=== PATIENT | female | born 1940 | race Caucasian/White ===

== ENCOUNTER 2018-09-19 15:51 | Emergency (ER) | payer OTHER ==
[~2018-09-19] VITALS: Ht 162.6 cm; Wt 39.2 kg
[2018-09-19 15:54] VITALS: Ht 162.6 cm; Wt 39.2 kg
[2018-09-19] MEDS ORDERED: SOD CHLORIDE 0.9% 1,000 ML IV STA (16:18)
[2018-09-19] MEDS ORDERED: ONDANSETRON 4 MG INJ IV STA (16:18)
[2018-09-19] MEDS ORDERED: AMPICILLIN/SULB 1.5GM/NS (PMX) 50 ML IVPB STA (16:18)
[2018-09-19] MEDS ORDERED: morphine 4 MG/ML VIAL IV STA (16:18)
[2018-09-19] MEDS ORDERED: DIPHTH/TET/ACEL PERTUSS (ADULT) 0.5 ML VIAL IM* ONE (16:30)
[2018-09-19] MEDS ORDERED: CLOP75TA27 PO (16:44)
[2018-09-19] MEDS ORDERED: FLUT1BLS INHALATION (16:46)
[2018-09-19] MEDS ORDERED: OXYB5TAB22 PO (16:46)
[2018-09-19] MEDS ORDERED: VALS320T2 PO (16:46)
[2018-09-19] MEDS ORDERED: MUPIROCIN 2% 22 GM OINT TOP ONE (17:30)
[2018-09-19] MEDS ORDERED: AMOX1TAB10 PO (18:05)
[2018-09-19 19:00] VITALS: BP 165/95; PULSE 79; RESP 17
--- NOTE | 2018-09-20 00:38 | ERD ---
ER Documentation Chief Complaint Chief Complaint L wrist pain "dog bite" x yesterday deformity noted HPI 78-year-old woman presents with left dorsal hand and wrist pain, swelling after a medium-sized dog bite occurring 6 hours prior (not yesterday per triage). She does use clopidogrel daily and suspects the bruising and hematoma that occurred is due to clopidogrel use. She denies paresis or paresthesias, no chest pain or shortness of breath, no LOC. ROS All systems reviewed and are negative except as per history of present illness. Medications Home Meds Active Scripts Amoxicillin/Potassium Clav (Amox-Clav 875-125 mg Tablet) 875-125 mg Tab, 1 TAB PO BID for 7 Days, #14 TAB Prov:SERGEI SUAREZ MD 09/19/18 Reported Medications Fluticasone/Vilanterol (Breo Ellipta 200-25 Mcg INH) 1 Each Blst.w.dev, 1 PUFF INHALATION DAILY, #1 INHALER 09/19/18 Oxybutynin Chloride* (Ditropan* XL) 5 Mg Tabsr, 5 MG PO DAILY, TAB.SA 09/19/18 Valsartan* (Diovan*) 320 Mg Tablet, 320 MG PO DAILY, TAB 09/19/18 Clopidogrel Bisulfate (Clopidogrel) 75 Mg Tablet, 75 MG PO DAILY, #30 TAB 09/19/18 Allergies Allergies: Coded Allergies: Sulfa (Sulfonamide Antibiotics) (Verified Allergy, Severe, SWELLING AND ITCHING, 09/19/18) citalopram (Verified Allergy, Unknown, SWELLING AND ITCHING, 09/19/18) ibuprofen (Verified Allergy, Unknown, SWELLING AND ITCHING, 09/19/18) PMhx/Soc Hypertension, CAD History of Surgery: Yes Anesthesia Reaction: No Hx Neurological Disorder: No Hx Respiratory Disorders: No Hx Cardiac Disorders: Yes (HTN, VASCULAR INSUFFICIENTCY WITH EDEMA) Hx Psychiatric Problems: No Hx Miscellaneous Medical Probl: No Hx Alcohol Use: Yes (OOC) Hx Substance Use: No Hx Tobacco Use: Yes Smoking Status: Current every day smoker FmHx Family History: No diabetes Physical Exam Vitals Vital Signs Date Temp Pulse Resp B/P (MAP) Pulse Ox O2 O2 Flow FiO2 Time Delivery Rate 09/19/18 79 17 165/95 100 Room Air 19:00 (118) 09/19/18 98.4 80 18 116/93 99 Room Air 18:22 (101) 09/19/18 98.4 68 18 181/100 100 15:54 (127) Physical Exam Const: No acute distress Head: Atraumatic Eyes: Normal Conjunctiva ENT: Normal External Ears, Nose and Mouth. Neck: Full range of motion. No meningismus. Resp: Clear to auscultation bilaterally Cardio: Regular rate and rhythm, no murmurs Abd: Soft, non tender, non distended. Normal bowel sounds Skin: There is a large superficial hematoma over the dorsal aspect of the left hand and wrist but there is surrounding skin appears clean and dry, intact without induration or erythema. Over the hematoma there is a small superficial puncture wound as well without active bleeding Back: No midline or flank tenderness Ext: No cyanosis, or edema, calves bilaterally symmetrical Neur: Awake and alert x3, no focal deficits or facial asymmetry Psych: Normal Mood and Affect Result Diagram: 09/19/18 1624 09/19/18 1624 Results 24 hrs Laboratory Tests Test 09/19/18 16:24 White Blood Count 12.3 10^3/ul Red Blood Count 3.79 10^6/ul Hemoglobin 12.5 g/dl Hematocrit 37.9 % Mean Corpuscular Volume 100.0 fl Mean Corpuscular Hemoglobin 33.0 pg Mean Corpuscular Hemoglobin Concent 33.0 g/dl Red Cell Distribution Width 13.2 % Platelet Count 310 10^3/UL Mean Platelet Volume 10.2 fl Immature Granulocytes % 0.400 % Neutrophils % 79.7 % Lymphocytes % 12.8 % Monocytes % 6.6 % Eosinophils % 0.2 % Basophils % 0.3 % Nucleated Red Blood Cells % 0.0 /100WBC Immature Granulocytes # 0.050 10^3/ul Neutrophils # 9.8 10^3/ul Lymphocytes # 1.6 10^3/ul Monocytes # 0.8 10^3/ul Eosinophils # 0.0 10^3/ul Basophils # 0.0 10^3/ul Nucleated Red Blood Cells # 0.0 10^3/ul Prothrombin Time 11.9 Sec Prothrombin Time Ratio 0.9 INR International Normalized Ratio 0.87 Activated Partial Thromboplast Time 28.6 Sec Sodium Level 142 mmol/L Potassium Level 4.5 mmol/L Chloride Level 105 mmol/L Carbon Dioxide Level 27 mmol/L Anion Gap 10 Blood Urea Nitrogen 22 mg/dl Creatinine 0.89 mg/dl Est Glomerular Filtrat Rate mL/min mL/min Glucose Level 118 mg/dl Calcium Level 10.5 mg/dl Total Bilirubin 0.3 mg/dl Direct Bilirubin 0.00 mg/dl Indirect Bilirubin 0.3 mg/dl Aspartate Amino Transf (AST/SGOT) 30 IU/L Alanine Aminotransferase (ALT/SGPT) 17 IU/L Alkaline Phosphatase 75 IU/L Total Protein 7.9 g/dl Albumin 4.4 g/dl Globulin 3.50 g/dl Albumin/Globulin Ratio 1.25 Lipase 67 U/L Current Medications Medications Dose Sig/Makayla Start Time Status Last (Trade) Ordered Route PRN Stop Time Admin Dose Reason Admin Sodium 1,000 ml @ Q1H STAT 09/19/18 DC 09/19/18 Chloride 1,000 mls/hr IV 16:18 16:44 09/19/18 17:17 Morphine 4 mg ONCE STAT 09/19/18 DC 09/19/18 Sulfate IV 16:18 16:44 (morphine) 09/19/18 16:22 Ondansetron 4 mg ONCE STAT 09/19/18 DC 09/19/18 HCl (Zofran IV 16:18 16:42 Inj) 09/19/18 16:22 Ampicillin 50 ml @ ONCE STAT 09/19/18 DC 09/19/18 Sodium/ 100 mls/hr IVPB 16:18 16:51 Sulbactam 09/19/18 16:47 Sodium Diphtheria/ 0.5 ml ONCE ONCE 09/19/18 DC 09/19/18 Tetanus/Acell IM* 16:30 16:43 Pertussis 09/19/18 16:31 (Adacel) Mupirocin 1 applic ONCE ONCE 09/19/18 DC (Bactroban) TOP 17:30 09/19/18 17:31 Procedures/MDM IV line was established patient was placed on campus monitor rhythm strip revealed a sinus rhythm at about 80 bpm with upright P and T waves. Patient was afebrile I administered 1 L normal saline IV, Unasyn 1.5 g IV, morphine 4 mg IV, Zofran 4 mg IV, tetanus toxoid 0.5 mL IM x1. One AP view of the chest performed, read by me reveals no acute infiltrates, normal mediastinum, sharp costophrenic and cardiac borders, no air under the diaphragm. Otherwise unremarkable chest x-ray. X-ray left hand 3V interpreted by me: Scaphoid: Normal Bones: No fracture Joints: No dislocation Foreign body: None X-ray left forearm 2V Interpreted by me: Bones: No fracture Joints: No dislocation Foreign body: None CBC and electrolytes were normal, liver function tests normal. Mupirocin antibiotic ointment was applied over the hematoma and nonadherent gauze patch and gauze wrap was applied for comfort measures. I told the patient to return in 24-48 hours for wound reevaluation I do not suspect she has cell ulitis, gangrene, lymphangitis, or deep space infection, although all of these are potential complications of this dog bite and may occur despite today's management and outpatient antibiotics, thus the importance of returning in 24-48 hours. Patient understood instructions and agreed to plan. Patient feels much better at this time, and vital signs are normal, symptoms have improved. I did give strict instructions to return to the ED if symptoms continue or worsen, patient will otherwise follow-up with primary care physician. Patient understood instructions and agreed to plan. Disclaimer: Inadvertent spelling and grammatical errors are likely due to EHR/dictation software use and do not reflect on the overall quality of patient care. Also, please note that the electronic time recorded on this note does not necessarily reflect the actual time of the patient encounter. Departure Diagnosis: Primary Impression: Dog bite Encounter type: initial encounter Qualified Codes: W54.0XXA - Bitten by dog, initial encounter Additional Impression: Hematoma Ruled Out: Wrist injury Condition: Good Patient Instructions: Dog Bite SERGEI SUAREZ MD Sep 20, 2018 00:38
== END 2018-09-19 19:00 | disposition home or self-care (01) ==
LOC: E/R 15:51
DX: S61.532A Puncture wound without foreign body of left wrist, initial encounter (principal); F17.210 Nicotine dependence, cigarettes, uncomplicated; I10 Essential (primary) hypertension; I25.10 Atherosclerotic heart disease of native coronary artery without angina pectoris; R07.9 Chest pain, unspecified; W54.0XXA Bitten by dog, initial encounter; Y92.9 Unspecified place or not applicable; Z23 Encounter for immunization
CPT/HCPCS: 36415; 71045; 73090; 73130; 80053; 83690; 85025; 85610; 85730; 90471; 90715; 96365; 96375; 99284; J0295; J2270; J2405; J7030

== ENCOUNTER 2018-09-25 14:21 | Emergency (ER) | payer OTHER ==
[~2018-09-25] VITALS: Ht 152.4 cm; Wt 50.0 kg
[~2018-09-25 14:21] MED LIST: AMOX1TAB10 PO; CLOP75TA27 PO; FLUT1BLS INHALATION; OXYB5TAB22 PO; VALS320T2 PO
[2018-09-25 14:28] VITALS: BP 173/83; PULSE 95; RESP 18; Ht 152.4 cm; Wt 50.0 kg
[2018-09-25] MEDS ORDERED: ONDANSETRON 4 MG INJ IV STA (16:12)
[2018-09-25] MEDS ORDERED: SODIUM CHLORIDE 0.9% 1L BAG IV* STA (16:12)
--- NOTE | 2018-09-25 16:24 | ERD ---
ER Documentation Chief Complaint Chief Complaint NAUSEA VOMITING TODAY AFTER TAKING ABX HPI This is a 78-year-old female with a past medical history of hypertension, COPD, peripheral vascular disease on Plavix who is presenting with worsening pain, swelling and discoloration to the left hand and arm after a dog bite that occurred 1 week ago. The patient was reportedly bitten by a dog with a wound to the dorsum of the left hand, occurring 1 week ago. The patient came into the emergency department 1 day later. The patient was given a tetanus shot. The dog was domesticated. There is reportedly no concern for rabies. The patient was ultimately discharged in stable condition on Augmentin. The patient initially had nausea and nonbilious nonbloody vomiting on the first day after taking the medication. Since then, the patient has been compliant on the medicine. She reports that she felt the symptoms were improving. The patient's hand was initially quite swollen, and the previous medical record felt that it was likely associated with a hematoma from bleeding while on Plavix. The patient thought that the swelling was going down. However, last night, the patient thinks she may have hit her hand on something because she woke up to bleeding from the dog bite wound. Since that bleeding started, her fingers, hand and forearm have become black and blue. She called the after-hours number for her primary care physician who instructed her to come to the emergency department for further assessment. The patient reports normal sensation and strength. She has not noticed any purulent material from the wound. The patient denies feeling sick recently. The patient denies fever or chills. The patient has had no headache or vision changes. The patient does not endorse neck or back pain. The patient denies lightheadedness or dizziness. The patient has had no chest pain or trouble breathing. The patient denies nausea or vomiting. The patient denies abdominal pain. The patient denies changes to bowel movements or urination. The patient has had no focal deficits. The patient has had no weakness or numbness or tingling to the face or extremities. ROS All systems reviewed and are negative except as per history of present illness. Medications Home Meds Active Scripts Amoxicillin/Potassium Clav (Amox-Clav 875-125 mg Tablet) 875-125 mg Tab, 1 TAB PO BID for 7 Days, #14 TAB Prov:SERGEI SUAREZ MD 09/19/18 Reported Medications Fluticasone/Vilanterol (Breo Ellipta 200-25 Mcg INH) 1 Each Blst.w.dev, 1 PUFF INHALATION DAILY, #1 INHALER 09/19/18 Oxybutynin Chloride* (Ditropan* XL) 5 Mg Tabsr, 5 MG PO DAILY, TAB.SA 09/19/18 Valsartan* (Diovan*) 320 Mg Tablet, 320 MG PO DAILY, TAB 09/19/18 Clopidogrel Bisulfate (Clopidogrel) 75 Mg Tablet, 75 MG PO DAILY, #30 TAB 09/19/18 Allergies Allergies: Coded Allergies: Sulfa (Sulfonamide Antibiotics) (Verified Allergy, Severe, SWELLING AND ITCHING, 09/19/18) citalopram (Verified Allergy, Unknown, SWELLING AND ITCHING, 09/19/18) ibuprofen (Verified Allergy, Unknown, SWELLING AND ITCHING, 09/19/18) PMhx/Soc History of Surgery: Yes Anesthesia Reaction: No Hx Neurological Disorder: No Hx Respiratory Disorders: No Hx Cardiac Disorders: Yes (HTN, peripheral vascular disease) Hx Psychiatric Problems: No Hx Miscellaneous Medical Probl: No Hx Alcohol Use: Yes (Occasional) Hx Substance Use: No Hx Tobacco Use: Yes Smoking Status: Heavy tobacco smoker FmHx Family History: No diabetes Physical Exam Vitals Vital Signs Date Temp Pulse Resp B/P (MAP) Pulse Ox O2 O2 Flow FiO2 Time Delivery Rate 09/25/18 97.8 95 18 173/83 95 14:28 (113) Physical Exam Const: No apparent distress, well-developed. Cachectic. Head: Normocephalic, Atraumatic Eyes: Normal Conjunctiva. Extraocular movements intact. Pupils equal, round a nd reactive to light ENT: Normal External Ears, Nose and Mouth. Neck: Full range of motion. No meningismus. Resp: Clear to auscultation bilaterally, No wheezes, rales or rhonchi Cardio: Regular rate and rhythm. No murmurs, rubs or gallops Abd: Soft, non tender, non distended. Normal bowel sounds Skin: No petechiae or rashes Back: No midline tenderness. No CVA tenderness Ext: No cyanosis. Mild edema and bruising to the left hand and forearm. Radial pulse is intact. Capillary refill less than 2 seconds. Puncture wound to the dorsum of the left hand with bloody nonpurulent secretions. No crepitus. Neur: Awake and alert, oriented 4. Cranial nerves intact. No facial droop. Normal strength, sensation and coordination. Psych: Normal Mood and Affect Result Diagram: 09/25/18 1639 09/25/18 1639 Results 24 hrs Laboratory Tests Test 09/25/18 16:39 09/25/18 17:08 White Blood Count 9.3 10^3/ul Red Blood Count 3.62 10^6/ul Hemoglobin 12.0 g/dl Hematocrit 36.5 % Mean Corpuscular Volume 100.8 fl Mean Corpuscular Hemoglobin 33.1 pg Mean Corpuscular Hemoglobin Concent 32.9 g/dl Red Cell Distribution Width 13.1 % Platelet Count 337 10^3/UL Mean Platelet Volume 9.9 fl Immature Granulocytes % 0.400 % Neutrophils % 81.1 % Lymphocytes % 10.9 % Monocytes % 7.2 % Eosinophils % 0.2 % Basophils % 0.2 % Nucleated Red Blood Cells % 0.0 /100WBC Immature Granulocytes # 0.040 10^3/ul Neutrophils # 7.5 10^3/ul Lymphocytes # 1.0 10^3/ul Monocytes # 0.7 10^3/ul Eosinophils # 0.0 10^3/ul Basophils # 0.0 10^3/ul Nucleated Red Blood Cells # 0.0 10^3/ul Erythrocyte Sedimentation Rate 51 mm/Hr Prothrombin Time 11.7 Sec Prothrombin Time Ratio 0.9 INR International Normalized Ratio 0.85 Activated Partial Thromboplast Time 29.7 Sec Sodium Level 143 mmol/L Potassium Level 3.7 mmol/L Chloride Level 104 mmol/L Carbon Dioxide Level 29 mmol/L Anion Gap 10 Blood Urea Nitrogen 16 mg/dl Creatinine 0.75 mg/dl Est Glomerular Filtrat Rate mL/min mL/min Glucose Level 100 mg/dl Calcium Level 9.9 mg/dl Total Bilirubin 0.3 mg/dl Direct Bilirubin 0.00 mg/dl Indirect Bilirubin 0.3 mg/dl Aspartate Amino Transf (AST/SGOT) 23 IU/L Alanine Aminotransferase (ALT/SGPT) 10 IU/L Alkaline Phosphatase 72 IU/L C-Reactive Protein 0.6 mg/dl Total Protein 7.6 g/dl Albumin 4.3 g/dl Globulin 3.30 g/dl Albumin/Globulin Ratio 1.30 Lactic Acid Level 1.1 mmol/L Current Medications Medications Dose Sig/Makayla Start Time Status Last (Trade) Ordered Route PRN Stop Time Admin Dose Reason Admin Sodium 1,500 ml BOLUS OVER 2 09/25/18 DC 09/25/18 Chloride HOURS STAT 16:12 09/25/18 16:50 (NS) IV* 16:16 Ondansetron 4 mg ONCE STAT 09/25/18 DC 09/25/18 HCl (Zofran IV 16:12 09/25/18 16:50 Inj) 16:16 Vancomycin 250 ml @ ONCE ONCE 09/25/18 DC 09/25/18 HCl 125 mls/hr IVPB 16:30 09/25/18 17:32 18:29 Cefepime HCl 50 ml @ ONCE ONCE 09/25/18 DC 09/25/18 100 mls/hr IVPB 16:30 09/25/18 16:50 16:59 Bacitracin 1 applic ONCE ONCE 09/25/18 DC (Bacitracin TOP 18:30 09/25/18 Oint (Ud)) 18:31 Procedures/MDM MDM The patient's presentation warrants further investigation. Previous medical records, if available, were reviewed. LABS The patient's laboratory testing was obtained and reviewed. No emergent treatment was required unless described below. CBC: No E/o of systemic infection or severe anemia or thrombocytopenia Chemistry: No E/o severe acidosis or alkalosis or renal failure or liver disease or diabetic ketoacidosis PT/INR: No E/o significant coagulopathy. Lactate: No E/o severe sepsis ESR/CRP: Mildly elevated ESR, but unlikely high enough to be from osteomyelitis or other concerning infection. Additionally, CRP is negative. Blood cultures: Sent EKG EKG read by me: Rate/Rhythm: Regular rate and rhythm at a rate of 65 bpm Intervals: Normal [place]: Normal Impression: No evidence of acute ischemia or arrhythmia IMAGING Imaging and Radiology interpretation reviewed. CXR FINDINGS: The lungs are clear. There is no pleural effusion or pneumothorax. The cardiac and mediastinal contours are within normal limits. The aorta is atherosclerotic. IMPRESSION: No acute pulmonary abnormality. Electronically viewed and signed by Uriah Loomis Physician on 09/25/2018 16:40 X-ray left hand FINDINGS: There is no acute fracture or dislocation. Osseous structures are intact. The osseous mineralization is decreased. There are mild to moderate degenerative changes of the wrist along with mild degenerative changes of the hand. There is no focal osseous demineralization. There is decreased soft tissue swelling of the hand. IMPRESSION: Decreased soft tissue swelling of the hand without an underlying osseous abnormality. Electronically viewed and signed by Physician Juan on 09/25/2018 16:42 Doppler left upper extremity FINDINGS: There is normal compressibility and flow within the left internal jugular vein, subclavian vein, axillary vein, brachial, basilic, cephalic, radial and ulnar veins. IMPRESSION: No sonographic evidence for venous thrombosis. Electronically viewed and signed by .Ar Abdalla MD, on 09/25/2018 17:11 TREATMENT/DISPOSITION The patient presents for swelling and bruising to the left hand and upper extremity after waking up to bleeding from the wound. I do suspect a mild traumatic injury that led to a transient vascular injury at the site. The patient's symptoms appear to be related to bleeding that has since been controlled. I do not see evidence of a worsening infection. I do not see evidence of an abscess. I do not see evidence of tenosynovitis. I have low suspicion for necrotizing fasciitis. I have low suspicion for gangrene. The patient was treated with an IV fluid bolus, vancomycin and cefepime as the hand is a very sensitive structure and I feel that prophylaxis is important. That said, the patient's workup does not reveal a systemic infection or sepsis. Based on this reassuring workup, I do not feel that the patient requires continuation of antibiotics from such a broad-spectrum. The patient is to complete her Augmentin dosing. She was initially prescribed 7 days, but she was not able to complete her first day due to nausea and vomiting. In addition to a prescription of Zofran for nausea, I will also extend the patient's Augmentin duration. The patient was also treated with bacitracin around the site. A dressing was applied over the wound. Upon reevaluation of the patient, symptoms have improved. No emergent diagnoses were identified. At this time, I feel that the patient stable for discharge. The patient was instructed to follow-up with a primary care physician in 1-3 days. The patient will be given strict precautions with which to return to the emergency department. Prescriptions: Zofran, Augmentin The patient's blood pressure was elevated at greater than 120/80 while in the emergency department. The patient was otherwise stable with no evidence of hypertensive urgency or emergency. The patient does not require admission for blood pressure control. I have discussed with the patient the risks of hypertension. I have instructed the patient to return to the ER for any new or worsening symptoms including chest pain, shortness of breath, headache, blurred vision, confusion, nausea, vomiting or LOC. I have advised the patient to follow up with the primary care physician for outpatient monitoring and treatment for hypertension in 1-3 days. Disclaimer: Inadvertent spelling and grammatical errors are likely due to EHR/dictation software use and do not reflect on the overall quality of patient care. Note that the electronic time recorded on this note does not necessarily reflect the actual time of the patient encounter. Departure Diagnosis: Primary Impression: Traumatic hematoma of left hand Encounter type: initial encounter Qualified Codes: S60.222A - Contusion of left hand, initial encounter Additional Impressions: Puncture wound of hand Encounter type: subsequent encounter Foreign body presence: without foreign body Laterality: left Qualified Codes: S61.432D - Puncture wound without foreign body of left hand, subsequent encounter Dog bite Encounter type: subsequent encounter Qualified Codes: W54.0XXD - Bitten by dog, subsequent encounter Condition: Stable JAY RAMIREZ MD Sep 25, 2018 16:24
[2018-09-25] MEDS ORDERED: CEFEPIME 1GM/50 ML (PMX) 50 ML IVPB ONE (16:30)
[2018-09-25] MEDS ORDERED: VANCOMYCIN 1 GM (PMX) 250 ML IVPB ONE (16:30)
[2018-09-25] MEDS ORDERED: BACITRACIN 0.9 GM OINT TOP ONE (18:30)
[2018-09-25] MEDS ORDERED: AMOX1TAB10 PO (19:01)
[2018-09-25] MEDS ORDERED: ONDA4TAB8 PO (19:02)
== END 2018-09-25 19:41 | disposition home or self-care (01) ==
LOC: E/R 14:21
DX: S61.432D Puncture wound without foreign body of left hand, subsequent encounter (principal); I10 Essential (primary) hypertension; J44.9 Chronic obstructive pulmonary disease, unspecified; F17.210 Nicotine dependence, cigarettes, uncomplicated; W54.0XXD Bitten by dog, subsequent encounter; Z79.01 Long term (current) use of anticoagulants
CPT/HCPCS: 36415; 71045; 73130; 80053; 83605; 85025; 85610; 85651; 85730; 86140; 87040; 93005; 93971; 96374; 96375; 99285; J0692; J2405; J3370; J7030

== ENCOUNTER 2019-02-02 11:52 | Inpatient (IN) | payer OTHER ==
[~2019-02-02] VITALS: Ht 162.6 cm; Wt 55.0 kg
[~2019-02-02 11:52] MED LIST changes: +ONDA4TAB8 PO
[2019-02-02] MEDS ORDERED: SOD CHLORIDE 0.9% 1,000 ML IV STA (12:06)
[2019-02-02] MEDS ORDERED: DILTIAZEM 25 MG INJ IV STA (12:47)
[2019-02-02] MEDS ORDERED: MAGNESIUM SULFATE 2 GM/50 ML 50 ML IVPB STA (12:47)
[2019-02-02] MEDS ORDERED: DILT300T PO (13:24)
[2019-02-02] MEDS ORDERED: BENA40TA56 PO (13:25)
[2019-02-02] MEDS: DILTIAZEM-D5W 125MG/125ML DRIP 125 ML IV STA ×2 (13:42→15:22)
--- NOTE | 2019-02-02 13:48 | ERD ---
ER Documentation Chief Complaint Chief Complaint BIB RA FOR EVAL OF GENERALIZED WEAKNESS HPI 79-year-old female who lives alone. The patient states that she could not get off of her toilet this morning. She denies any falls or injury. She felt generally weak and could not stand up. She denies any fevers chills chest pain or shortness of breath. Patient states that she is able to care for her activities of daily living and does not wish to go to a rehab facility. It sounds like a neighbor got her off of her toilet and she was sitting outside when paramedics arrived. Patient is found to be in A. fib with RVR. She does r eport a history of atrial fibrillation. ROS All systems reviewed and are negative except as per history of present illness. Medications Home Meds Reported Medications Benazepril Hcl* (Benazepril Hcl*) 40 Mg Tablet, 40 MG PO DAILY, #30 TAB 02/02/19 Diltiazem Hcl* (Cardizem LA*) 300 Mg Tab.sr.24h, 300 MG PO DAILY, #30 TAB.SA 02/02/19 Discontinued Reported Medications Fluticasone/Vilanterol (Breo Ellipta 200-25 Mcg INH) 1 Each Blst.w.dev, 1 PUFF INHALATION DAILY, #1 INHALER 09/19/18 Oxybutynin Chloride* (Ditropan* XL) 5 Mg Tabsr, 5 MG PO DAILY, TAB.SA 09/19/18 Valsartan* (Diovan*) 320 Mg Tablet, 320 MG PO DAILY, TAB 09/19/18 Clopidogrel Bisulfate (Clopidogrel) 75 Mg Tablet, 75 MG PO DAILY, #30 TAB 09/19/18 Discontinued Scripts Ondansetron Hcl* (Zofran*) 4 Mg Tablet, 4 MG PO Q6H for NAUSEA AND/OR VOMITING, #20 TAB Prov:JAY RAMIREZ MD 09/25/18 Amoxicillin/Potassium Clav (Amox-Clav 875-125 mg Tablet) 875-125 mg Tab, 1 TAB PO BID for 3 Days, #6 TAB Prov:JAY RAMIREZ MD 09/25/18 Amoxicillin/Potassium Clav (Amox-Clav 875-125 mg Tablet) 875-125 mg Tab, 1 TAB PO BID for 7 Days, #14 TAB Prov:SERGEI SUAREZ MD 09/19/18 Allergies Allergies: Coded Allergies: Sulfa (Sulfonamide Antibiotics) (Verified Allergy, Severe, SWELLING AND ITCHING, 02/02/19) citalopram (Verified Allergy, Unknown, SWELLING AND ITCHING, 02/02/19) ibuprofen (Verified Allergy, Unknown, SWELLING AND ITCHING, 02/02/19) PMhx/Soc History of Surgery: Yes Anesthesia Reaction: No Hx Neurological Disorder: No Hx Respiratory Disorders: No Hx Cardiac Disorders: Yes (HTN, peripheral vascular disease) Hx Psychiatric Problems: No Hx Miscellaneous Medical Probl: No Hx Alcohol Use: Yes (Occasional) Hx Substance Use: No Hx Tobacco Use: Yes FmHx Family History: No diabetes Physical Exam Vitals Vital Signs Date Temp Pulse Resp B/P (MAP) Pulse Ox O2 O2 Flow FiO2 Time Delivery Rate 02/02/19 88 17 102/88 95 Nasal 3.0 14:44 (93) Cannula 02/02/19 98.1 134 22 112/92 92 Room Air 12:30 (99) 02/02/19 98.0 91 16 121/68 99 11:57 (85) Physical Exam General: Cachectic female, clinical dehydration Head: Normocephalic, atraumatic. Eyes: Pupils equally reactive, EOM intact ENT: Dry mucous membranes Neck: Supple, no lymphadenopathy Respiratory: Lungs clear bilaterally, no distress Cardiovascular: Tachycardia, irregularly irregular, no murmurs, rubs, or gallops Abdominal: Soft, non-tender, non-distended, no peritoneal signs : Deferred MSK: No edema, no unilateral swelling, 5/5 strength Neurologic: Alert and oriented, moving all extremities, normal speech, no focal weakness, no cerebellar signs Skin: No rash Psych: Normal mood Result Diagram: 02/02/19 1307 02/02/19 1307 Results 24 hrs Laboratory Tests Test 02/02/19 13:07 02/02/19 13:21 White Blood Count 17.8 10^3/ul Red Blood Count 4.37 10^6/ul Hemoglobin 13.8 g/dl Hematocrit 43.5 % Mean Corpuscular Volume 99.5 fl Mean Corpuscular Hemoglobin 31.6 pg Mean Corpuscular Hemoglobin Concent 31.7 g/dl Red Cell Distribution Width 14.6 % Platelet Count 155 10^3/UL Mean Platelet Volume 12.9 fl Immature Granulocytes % 0.600 % Neutrophils % 89.8 % Lymphocytes % 3.4 % Monocytes % 6.0 % Eosinophils % 0.0 % Basophils % 0.2 % Nucleated Red Blood Cells % 0.2 /100WBC Immature Granulocytes # 0.100 10^3/ul Neutrophils # 16.0 10^3/ul Lymphocytes # 0.6 10^3/ul Monocytes # 1.1 10^3/ul Eosinophils # 0.0 10^3/ul Basophils # 0.0 10^3/ul Nucleated Red Blood Cells # 0.0 10^3/ul Sodium Level 141 mmol/L Potassium Level 4.3 mmol/L Chloride Level 111 mmol/L Carbon Dioxide Level 23 mmol/L Anion Gap 7 Blood Urea Nitrogen 45 mg/dl Creatinine 1.06 mg/dl Est Glomerular Filtrat Rate mL/min mL/min Glucose Level 206 mg/dl Calcium Level 8.9 mg/dl Total Bilirubin 0.9 mg/dl Direct Bilirubin 0.00 mg/dl Indirect Bilirubin 0.9 mg/dl Aspartate Amino Transf (AST/SGOT) 38 IU/L Alanine Aminotransferase (ALT/SGPT) 29 IU/L Alkaline Phosphatase 84 IU/L Troponin I 0.739 ng/ml Total Protein 6.6 g/dl Albumin 3.2 g/dl Globulin 3.40 g/dl Albumin/Globulin Ratio 0.94 Lipase 19 U/L Urine Color SOILA Urine Clarity SLIGHTLY CLOUDY Urine pH 5.0 Urine Specific [place] 1.026 Urine Ketones NEGATIVE mg/dL Urine Nitrite NEGATIVE mg/dL Urine Bilirubin NEGATIVE mg/dL Urine Urobilinogen 2+ mg/dL Urine Leukocyte Esterase NEGATIVE Jose/ul Urine Microscopic RBC 2 /HPF Urine Microscopic WBC 1 /HPF Urine Squamous Epithelial Cells FEW /HPF Urine Bacteria FEW /HPF Urine Mucus FEW /HPF Urine Hemoglobin NEGATIVE mg/dL Urine Glucose NEGATIVE mg/dL Urine Total Protein 2+ mg/dl Current Medications Medications Dose Sig/Makayla Start Time Status Last (Trade) Ordered Route PRN Stop Time Admin Dose Reason Admin Sodium 1,000 ml @ Q1H STAT 02/02/19 DC 02/02/19 Chloride 1,000 mls/hr IV 12:06 13:01 02/02/19 13:05 Diltiazem 20 mg ONCE STAT 02/02/19 DC 02/02/19 HCl IV 12:47 13:00 (Cardizem Iv) 02/02/19 12:48 Diltiazem 125 ml @ 5 ONCE STAT 02/02/19 02/02/19 HCl mls/hr IV 12:47 13:42 02/03/19 13:46 Magnesium 50 ml @ ONCE STAT 02/02/19 DC 02/02/19 Sulfate 600 mls/hr IVPB 12:47 13:00 02/02/19 12:51 Ondansetron 4 mg ER BRIDGE 02/02/19 HCl (Zofran PRN IV 14:00 Inj) NAUSEA/VOMITI 02/03/19 13:59 NG 650 mg ER BRIDGE 02/02/19 Acetaminophen PRN PO 14:00 (Tylenol .MILD PAIN 02/03/19 13:59 Tab) 1-3 OR TEMP Procedures/MDM EKG, MONITORS, & DIAGNOSTIC IMAGING: EKG: I reviewed and interpreted a 12-lead EKG. Rhythm: A. fib with RVR ST Changes: No contiguous ST segment elevations T waves: No contiguous T wave inversions Impression: [No evidence of acute cardiac ischemia] Chest x-ray: I reviewed and interpreted a 1 view of the chest Mediastinum: No enlargement Cardiac silhouette: No cardiomegaly Airspace: Clear lung hunt bilaterally without evidence of pneumothorax Bones: No evidence of fracture LAB INTERPRETATION: I reviewed the laboratory testing and it shows leukocytosis, trop elevation. MEDICAL DECISION MAKING: Patient presents with generalized weakness of unclear etiology. The patient appears to be clinically dehydrated. She would benefit from fluid resuscitati on. She is also found to be in A. fib with RVR and warrants rate control. This appears to be a chronic issue for the patient, unclear if she is taking anticoagulants. Patient did not fall or hit her head, no indication for CT imaging of the brain. The patient has a nonfocal neurologic examination. ER COURSE: * IV fluids, magnesium and Cardizem given. Rate control. No drip initiated at this time. It is placed to the bedside. * Patient has troponin elevation likely demand ischemia. The patient is rate controlled. Aspirin provided. CONSULTATION: Dr. Upton, cardiology at bedside DISPOSITION PLAN: Telemetry admission Accepting care team and consultations: I discussed the current laboratory data, diagnostic imaging and emergency care provided. Admitting team: Dr. Piper Admitting team indication: Insurance directed Critical Care Note: Total time: 35min Indication/Organ System Threat: A. fib with RVR, non-ST elevation myocardial infarction I spent the above amount of critical care time with the patient, not including billable procedures. This included chart review, consultations, repeat bedside evaluations, and titration of appropriate medications to prevent cardiopulmonary or respiratory collapse. Departure Diagnosis: Primary Impression: Acute weakness Additional Impressions: Dehydration, moderate Non-ST elevation myocardial infarction (NSTEMI) Atrial fibrillation with RVR Condition: Stable VIVIEN SANCHEZ MD Feb 02, 2019 13:48
[2019-02-02] MEDS ORDERED: ACETAMINOPHEN 325 MG TAB PO PRN (14:00)
[2019-02-02] MEDS ORDERED: ONDANSETRON 4 MG INJ IV PRN (14:00)
[2019-02-02] MEDS ORDERED: METOPROLOL 50 MG TAB PO ONE (15:30)
[2019-02-02] MEDS ORDERED: ASPIRIN 81 MG TAB PO ONE (15:30)
--- NOTE | 2019-02-02 16:08 | CONS ---
Assessment/Plan Assessment/Plan Hospital Course (Demo Recall) Atrial fibrillation with rapid ventricular rates Elevated troponin Lower extremity edema Hypertension Patient presents with fatigue, palpitations and weakness Patient with atrial fibrillation with rapid ventricular rates, unclear if this is new or patient with history of Incidentally troponins are elevated, ECG with no significant ischemic abnormalities and patient without chest pain or shortness of breath Patient currently on Cardizem drip, would start p.o. beta-swati with goal of titrating off IV Cardizem We will start Lovenox in the interim with close monitoring of hemoglobin Aspirin and statin therapy Gentle IV hydration Check echocardiogram Consultation Date/Type/Reason Admit Date/Time Type of Consult Cardiology Reason for Consultation Elevated troponin Date/Time of Note DATE: 02/02/19 TIME: 16:02 Hx of Present Illness This is a 79-year-old female with past mental history of probable atrial fibrillation, hypertension who presents with weakness and palpitation of the past few days. Patient inconsistent with her history, but when asked as well discussion with the ER physician, patient has been feeling weak and tired over the past few days. Is been having frequent palpitations. She denies any chest pain or shortness of breath but does complain of lower examinee swelling. Appears patient can get off the toilet and had a crawl in the floor to a neighbor to help her because she was so weak and tired. She was brought to emergency room and found to be in atrial fibrillation with rapid ventricular rates. Routine blood test demonstrated elevated troponin for this reason cardiology condition was requested. Patient is not sure if she has a history of atrial fibrillation, she thinks she was on Plavix in the past for her heart stop because of bleeding. Denies any chest pain or shortness of breath currently, denies any palpitations. She is asking for food and coffee. She does still actively smoke 12 point review of systems was performed with all pertinent positives and negatives mentioned above and all else is negative Past Medical History Probable atrial fibrillation Medical History: hypertension Home Meds Reported Medications Benazepril Hcl* (Benazepril Hcl*) 40 Mg Tablet, 40 MG PO DAILY, #30 TAB 02/02/19 Diltiazem Hcl* (Cardizem LA*) 300 Mg Tab.sr.24h, 300 MG PO DAILY, #30 TAB.SA 02/02/19 Discontinued Reported Medications Fluticasone/Vilanterol (Breo Ellipta 200-25 Mcg INH) 1 Each Blst.w.dev, 1 PUFF INHALATION DAILY, #1 INHALER 09/19/18 Oxybutynin Chloride* (Ditropan* XL) 5 Mg Tabsr, 5 MG PO DAILY, TAB.SA 09/19/18 Valsartan* (Diovan*) 320 Mg Tablet, 320 MG PO DAILY, TAB 09/19/18 Clopidogrel Bisulfate (Clopidogrel) 75 Mg Tablet, 75 MG PO DAILY, #30 TAB 09/19/18 Discontinued Scripts Ondansetron Hcl* (Zofran*) 4 Mg Tablet, 4 MG PO Q6H for NAUSEA AND/OR VOMITING, #20 TAB Prov:JAY RAMIREZ MD 09/25/18 Amoxicillin/Potassium Clav (Amox-Clav 875-125 mg Tablet) 875-125 mg Tab, 1 TAB PO BID for 3 Days, #6 TAB Prov:JAY RAMIREZ MD 09/25/18 Amoxicillin/Potassium Clav (Amox-Clav 875-125 mg Tablet) 875-125 mg Tab, 1 TAB PO BID for 7 Days, #14 TAB Prov:SERGEI SUAREZ MD 09/19/18 Medications Current Medications Diltiazem HCl 125 ml @ 5 mls/hr ONCE STAT IV Last administered on 02/02/19at 15:22; Admin Dose 5 MLS/HR; Start 02/02/19 at 12:47; Stop 02/03/19 at 13:46 Ondansetron HCl (Zofran Inj) 4 mg ER BRIDGE PRN IV NAUSEA/VOMITING; Start 02/02/19 at 14:00; Stop 02/03/19 at 13:59 Acetaminophen (Tylenol Tab) 650 mg ER BRIDGE PRN PO .MILD PAIN 1-3 OR TEMP; Start 02/02/19 at 14:00; Stop 02/03/19 at 13:59 Sodium Chloride 1,000 ml @ 80 mls/hr [id number] IV ; Start 02/02/19 at 16:00 Allergies: Coded Allergies: Sulfa (Sulfonamide Antibiotics) (Verified Allergy, Severe, SWELLING AND ITCHING, 02/02/19) citalopram (Verified Allergy, Unknown, SWELLING AND ITCHING, 02/02/19) ibuprofen (Verified Allergy, Unknown, SWELLING AND ITCHING, 02/02/19) Social History Smoking Status: Current every day smoker Exam/Review of Systems Vital Signs Vitals Vital Signs Date Temp Pulse Resp B/P (MAP) Pulse Ox O2 O2 Flow FiO2 Time Delivery Rate 02/02/19 88 17 102/88 95 Nasal 3.0 14:44 (93) Cannula 02/02/19 98.1 12:30 Exam Constitutional: alert, oriented (Becomes angered easily), frail Head: normocephalic Respiratory: other (Coarse breath sounds bilaterally, no wheezing) Cardiovascular: irregular rhythm (S1-S2 heard) Gastrointestinal: soft, non-tender, bowel sounds Extremities: edema Labs Result Diagram: 02/02/19 1307 02/02/19 1307 Results 24hrs Laboratory Tests Test 02/02/19 13:07 02/02/19 13:21 White Blood Count 17.8 #H Red Blood Count 4.37 # Hemoglobin 13.8 Hematocrit 43.5 Mean Corpuscular Volume 99.5 Mean Corpuscular Hemoglobin 31.6 Mean Corpuscular Hemoglobin Concent 31.7 L Red Cell Distribution Width 14.6 H Platelet Count 155 # Mean Platelet Volume 12.9 #H Immature Granulocytes % 0.600 H Neutrophils % 89.8 H Lymphocytes % 3.4 L Monocytes % 6.0 Eosinophils % 0.0 Basophils % 0.2 Nucleated Red Blood Cells % 0.2 H Immature Granulocytes # 0.100 H Neutrophils # 16.0 H Lymphocytes # 0.6 L Monocytes # 1.1 H Eosinophils # 0.0 Basophils # 0.0 Nucleated Red Blood Cells # 0.0 Sodium Level 141 Potassium Level 4.3 Chloride Level 111 H Carbon Dioxide Level 23 Anion Gap 7 Blood Urea Nitrogen 45 H Creatinine 1.06 H Est Glomerular Filtrat Rate mL/min Glucose Level 206 Calcium Level 8.9 Total Bilirubin 0.9 Direct Bilirubin 0.00 Indirect Bilirubin 0.9 Aspartate Amino Transf (AST/SGOT) 38 Alanine Aminotransferase (ALT/SGPT) 29 Alkaline Phosphatase 84 Troponin I 0.739 *H Total Protein 6.6 Albumin 3.2 L Globulin 3.40 H Albumin/Globulin Ratio 0.94 Lipase 19 L Urine Color SOILA Urine Clarity SLIGHTLY CLOUDY A Urine pH 5.0 Urine Specific [place] 1.026 Urine Ketones NEGATIVE Urine Nitrite NEGATIVE Urine Bilirubin NEGATIVE Urine Urobilinogen 2+ H Urine Leukocyte Esterase NEGATIVE Urine Microscopic RBC 2 Urine Microscopic WBC 1 Urine Squamous Epithelial Cells FEW Urine Bacteria FEW A Urine Mucus FEW A Urine Hemoglobin NEGATIVE Urine Glucose NEGATIVE Urine Total Protein 2+ H Imaging Imaging ECG atrial fibrillation 131 bpm, QRS 80 ms, poor R wave progression, nonspecific ST abnormalities Medications Medications Current Medications Diltiazem HCl 125 ml @ 5 mls/hr ONCE STAT IV Last administered on 02/02/19at 15:22; Admin Dose 5 MLS/HR; Start 02/02/19 at 12:47; Stop 02/03/19 at 13:46 Ondansetron HCl (Zofran Inj) 4 mg ER BRIDGE PRN IV NAUSEA/VOMITING; Start 02/02/19 at 14:00; Stop 02/03/19 at 13:59 Acetaminophen (Tylenol Tab) 650 mg ER BRIDGE PRN PO .MILD PAIN 1-3 OR TEMP; Start 02/02/19 at 14:00; Stop 02/03/19 at 13:59 Sodium Chloride 1,000 ml @ 80 mls/hr [id number] IV ; Start 02/02/19 at 16:00 Broderick Upton DO Feb 02, 2019 16:08
[2019-02-02] MEDS: SOD CHLORIDE 0.9% 1,000 ML IV SCH (17:06)
[2019-02-02 20:20] VITALS: Ht 162.6 cm; Wt 55.0 kg
[2019-02-02 20:30] VITALS: PULSE 92
[2019-02-02 22:00] VITALS: BP 105/62; PULSE 57; RESP 19
[2019-02-02] MEDS: ATORVASTATIN 40 MG TAB PO SCH (23:34)
[2019-02-02] MEDS: METOPROLOL 25 MG TAB PO SCH (23:35)
[2019-02-02] MEDS: ENOXAPARIN 60 MG/0.6 ML SYG SC SCH (23:37)
--- NOTE | 2019-02-02 23:51 | HP ---
DATE OF ADMISSION: 02/02/2019 CHIEF COMPLAINT: Palpitations and generalized weakness. HISTORY OF PRESENT ILLNESS: A 79-year-old female, with history of hypertension and presumed atrial f ibrillation, presented to the emergency room with complaints of generalized weakness for several days , associated with palpitations. The patient denies any chest pain. She reports occasional shortness of breath. The patient has not been able to ambulate at home. She has been falling on the floor. On review of systems she denies abdominal pain, nausea or vomiting. No fevers or chills. Initial evaluation in the emergency room reveals rapid atrial fibrillation. BUN was elevated at 40 w ith creatinine of 1. The patient was started on Cardizem drip. PAST MEDICAL HISTORY: 1. Hypertension. 2. Presumed atrial fibrillation. MEDICATIONS: Prior to admission: 1. Benazepril. 2. Cardizem. SOCIAL HISTORY: The patient lives at home. She denies tobacco or alcohol use. PHYSICAL EXAMINATION: GENERAL: A well-developed, well-nourished female, with poor overall hygiene. VITAL SIGNS: Stable. She is afebrile. HEENT: Extraocular muscles intact. Pupils equal and reactive to light bilaterally. Sclerae anicter ic. Oropharynx is clear and moist. NECK: Supple. No JVD, no carotid bruits. LUNGS: Bilateral rhonchi. CARDIAC: Irregularly irregular, with normal rate. ABDOMEN: Soft, nontender, nondistended, normoactive bowel sounds. EXTREMITIES: Mild edema. NEUROLOGIC: Grossly nonfocal. ASSESSMENT: A 79-year-old female, with: 1. New onset of chronic atrial fibrillation and rapid rate. 2. Hypertension, well controlled. 3. Dehydration. 4. Generalized weakness. PLAN: 1. Place in telemetry observation. 2. Continue IV Cardizem. 3. Start low-dose beta swati. 4. Serial troponins. 5. A 2D echo. 6. Cardiology consultation was requested. 7. The patient will benefit from senior living facility placement for physical therapy and rehabil itation. Dictated By: SINA CHÁVEZ/EDUARDO Conf#: [id number] DID#: [id number]
[2019-02-03] VITALS (7 sets, daily range): BP systolic 100–130; BP diastolic 55–91; PULSE 51–127; RESP 18–22
[2019-02-03] MEDS ORDERED: LORAZEPAM 2 MG INJ IV ONE (06:00)
[2019-02-03] MEDS: SOD CHLORIDE 0.9% 1,000 ML IV SCH ×2 (06:17→18:11)
[2019-02-03] MEDS: METOPROLOL 25 MG TAB PO SCH ×2 (06:19→13:38)
[2019-02-03] MEDS: ASPIRIN 81 MG TAB PO SCH (09:00)
[2019-02-03] MEDS: ENOXAPARIN 60 MG/0.6 ML SYG SC SCH ×2 (09:05→22:56)
--- NOTE | 2019-02-03 12:05 | PN ---
Date/Time of Note Date/Time of Note DATE: 02/03/19 TIME: 12:03 Subjective Patient is quite lethargic and poorly arousable. She received Ativan earlier Objective Vitals Vital Signs Date Temp Pulse Resp B/P (MAP) Pulse Ox O2 O2 Flow FiO2 Time Delivery Rate 02/03/19 97.8 63 21 123/70 95 11:15 (87) 02/02/19 Nasal 2.0 20:40 Cannula Intake and Output 02/02/19 02/02/19 02/03/19 1414:59 22:59 06:59 IntakeIntake Total 1050 ml BalanceBalance 1050 ml Bilateral rhonchi Irregularly irregular with normal rate Soft normoactive bowel sounds Mild pedal edema Results Result Diagram: 02/03/1948 02/03/19 0848 Medications Medications Current Medications Diltiazem HCl 125 ml @ 5 mls/hr ONCE STAT IV Last administered on 02/02/19at 15:22; Admin Dose 5 MLS/HR; Start 02/02/19 at 12:47; Stop 02/03/19 at 13:46 Sodium Chloride 1,000 ml @ 80 mls/hr [id number] IV Last administered on 02/03/19at 06:17; Admin Dose 80 MLS/HR; Start 02/02/19 at 16:00 Metoprolol Tartrate (Lopressor) 25 mg Q8 PO Last administered on 02/03/19at 06:19; Admin Dose 25 MG; Start 02/02/19 at 22:00 Enoxaparin Sodium (Lovenox) 55 mg Q12 SC Last administered on 02/03/19at 09:05; Admin Dose 55 MG; Start 02/02/19 at 21:00 Atorvastatin Calcium (Lipitor) 40 mg HS PO Last administered on 02/02/19at 23:34; Admin Dose 40 MG; Start 02/02/19 at 21:00 Aspirin (Aspirin) 81 mg DAILY PO ; Start 02/03/19 at 09:00 VTE Prophylaxis Risk score (from Nsg)>0 risk: 3 SCD applied (from Nsg): Yes Lines/Catheters IV Catheter Type: Saline Lock Reyes in Place: No Assessment/Plan Assessment/Plan 79-year-old female with rapid atrial fibrillation, rate controlled Hypertension Generalized weakness Altered mental status due to Ativan Continue current therapy Avoid benzodiazepine Check 2D echo Cardiology follow-up Physical therapy Discharge planning to [facility] SINA CAMARILLO MD Feb 03, 2019 12:04
--- NOTE | 2019-02-03 15:59 | RADRPT ---
Echocardiogram Report Patient Name: TIEN VITALEPatient ID: [id number] : 1940 (79y 1m)Study Date: 02/02/2019 4:36:03 PM Gender: FAccession #: [id number] Tech: Cliff [facility] Location: [facility] Ref.Physician: SINA CAMARILLO Height(Cm): BSA: Weight(Kg): Quality: AdequateOrder Physician: SINA CAMARILLO Account #: Procedures: Echocardiographic Report: Transthoracic echocardiogram with complete 2D, M-Mode, and doppler examination. Indications: Evaluate Left Ventricular function. Measurements: 2D/M Mode Doppler Measurement Value Normal Range Measurement Value Normal Range LVIDd 2D 4.6 [ 3.8 - 5.2 ] cm WANG VTI 0.6 [ 2.0 - 4.0 ] cm2 LVIDs 2D 4.1 [ 2.2 - 3.5 ] cm AV Mean Ty 1.9 [ 70.0 - 90.0 ] cm/sec LVPWd 2D 1.1 [ 0.6 - 0.9 ] cm AV Mean PG 19.0 [ 2.0 - 4.0 ] mmHg IVSd 2D 1.4 [ 0.6 - 0.9 ] cm AV VTI 51.9 cm AoR Diam 2D 2.6 [ 2.3 - 3.1 ] cm AI Peak PG 82.0 mmHg EDV 2D 99.3 [ 46.0 - 106.0 ] ml AI Peak Ty 4.5 cm/sec ESV 2D 73.4 [ 14.0 - 42.0 ] ml AI PHT 533.0 msec EF 2D 26.1 [ 54.0 - 74.0 ] percent LVOT Mean Ty 0.4 [ 60.0 - 80.0 ] cm/sec LA Dimen 2D 4.9 [ 2.7 - 3.8 ] cm LVOT Mean PG 1.0 [ 1.0 - 3.0 ] mmHg LVOT Diam 2.0 [ 2.1 - 2.5 ] cm LVOT Peak Ty 0.6 [ 70.0 - 110.0 ] cm/sec LVOT Peak PG 1.0 [ 2.0 - 6.0 ] mmHg LVOT VTI 10.2 [ 20.0 - 30.0 ] cm MV E Peak Ty 1.3 [ 60.0 - 130.0 ] cm/sec MV Decel Time 158 [ 104 - 258 ] msec TR Peak Ty 2.5 [ 100.0 - 280.0 ] cm/sec TR Peak PG 24.0 mmHg RVSP 32.0 [ 10.0 - 36.0 ] mmHg Findings: Left Ventricle: Normal left ventricular cavity size. Sigmoid septum. Moderate left ventricular systolic dysfunction. Ejection fraction is visually estimated at 35 %. Abnormal Diastolic Function. Right Ventricle: Normal right ventricular size. Mild right ventricular systolic dysfunction. Left Atrium: There is severe enlargement of left atrium. Right Atrium: There is severe enlargement of right atrium. Mitral Valve: Mild mitral leaflet calcification. Mild mitral annular calcification. Moderate to severe mitral valve regurgitation. Aortic Valve: Mild aortic stenosis. Aortic cusps appear moderately calcified. Mild to moderate aortic valve regurgitation. Tricuspid Valve: Normal appearance of the tricuspid valve. The estimated Peak RVSP is 32 mmHg. There is moderate to severe tricuspid regurgitation. Pericardium: Normal pericardium with no significant pericardial effusion. Aorta: Normal aortic root. IVC: Normal size with poor respiratory collapse consistent with elevated right atrial pressure. Conclusions: Normal left ventricular cavity size. Sigmoid septum. Moderate left ventricular systolic dysfunction. Ejection fraction is visually estimated at 35 %. Abnormal Diastolic Function. Normal right ventricular size. Mild right ventricular systolic dysfunction. There is severe enlargement of left atrium. There is severe enlargement of right atrium. Moderate to severe mitral valve regurgitation. Mild aortic stenosis. Mild to moderate aortic valve regurgitation. The estimated Peak RVSP is 32 mmHg. There is moderate to severe tricuspid regurgitation. Normal pericardium with no significant pericardial effusion. Electronically Signed By: Broderick Upton 2019-02-03 15:58:38 PDT
--- NOTE | 2019-02-03 16:16 | CONS ---
Assessment/Plan Assessment/Plan Hospital Course (Demo Recall) Atrial fibrillation with rapid ventricular rates-improved Elevated troponin-trending down Cardiomyopathy Mitral and tricuspid valve regurgitation Patient presents with fatigue, palpitations and weakness Patient with atrial fibrillation with rapid ventricular rates, unclear if this is new or patient with history of Incidentally troponins are elevated, ECG with no significant ischemic abnorma lities and patient without chest pain or shortness of breath upon initial evaluation. Unfortunate, currently she is currently sleeping and appears she was given Ativan and is not responsive Echocardiogram with cardiopathy with multiple valvular abnormalities Will switch metoprolol to Toprol-XL, would start LAVERNE inhibitor and titrate as tolerated Aspirin and statin therapy Consultation Date/Type/Reason Admit Date/Time Feb 02, 2019 at 13:55 Initial Consult Date Type of Consult Cardiology Date/Time of Note DATE: 02/03/19 TIME: 16:12 24 HR Interval Summary Free Text/Dictation Patient sleeping and not arousable currently. Is as per the notes, was given Ativan recently Exam/Review of Systems Vital Signs Vitals Vital Signs Date Temp Pulse Resp B/P (MAP) Pulse Ox O2 O2 Flow FiO2 Time Delivery Rate 02/03/19 97.8 63 21 123/70 95 11:15 (87) 02/03/19 Nasal 2.0 08:00 Cannula Intake and Output 02/02/19 02/02/19 02/03/19 1515:00 23:00 07:00 IntakeIntake Total 1050 ml BalanceBalance 1050 ml Exam Exam Sleeping, not arousable, no distress Head: normocephalic Respiratory: other (Coarse breath sounds bilaterally, no wheezing) Cardiovascular: irregular rhythm (S1-S2 heard), systolic murmur Gastrointestinal: soft, non-tender, bowel sounds Extremities: edema (Trace) Labs Result Diagram: 02/03/19 0848 02/03/19 0848 Results 24hrs Laboratory Tests Test 02/02/19 19:45 02/03/19 00:48 02/03/19 08:48 Creatine Kinase 85 236 #H Creatine Kinase Index 4.6 2.1 Creatinine Kinase MB (Mass) 3.91 H 5.01 H Troponin I 0.617 *H 0.521 *H 0.376 *H White Blood Count 15.6 H Red Blood Count 4.08 L Hemoglobin 13.0 Hematocrit 40.5 Mean Corpuscular Volume 99.3 Mean Corpuscular Hemoglobin 31.9 Mean Corpuscular Hemoglobin Concent 32.1 Red Cell Distribution Width 14.6 H Platelet Count 174 Mean Platelet Volume 12.9 H Immature Granulocytes % 0.600 H Neutrophils % 85.1 H Lymphocytes % 6.5 L Monocytes % 7.7 Eosinophils % 0.0 Basophils % 0.1 Nucleated Red Blood Cells % 0.2 H Immature Granulocytes # 0.090 H Neutrophils # 13.2 H Lymphocytes # 1.0 Monocytes # 1.2 H Eosinophils # 0.0 Basophils # 0.0 Nucleated Red Blood Cells # 0.0 Sodium Level 143 Potassium Level 4.2 Chloride Level 116 H Carbon Dioxide Level 20 L Anion Gap 7 Blood Urea Nitrogen 41 H Creatinine 0.89 Est Glomerular Filtrat Rate mL/min Glucose Level 102 # Calcium Level 7.9 L Medications Medications Current Medications Sodium Chloride 1,000 ml @ 80 mls/hr [id number] IV Last administered on 02/03/19at 06:17; Admin Dose 80 MLS/HR; Start 02/02/19 at 16:00 Metoprolol Tartrate (Lopressor) 25 mg Q8 PO Last administered on 02/03/19at 06 :19; Admin Dose 25 MG; Start 02/02/19 at 22:00 Enoxaparin Sodium (Lovenox) 55 mg Q12 SC Last administered on 02/03/19at 09:05; Admin Dose 55 MG; Start 02/02/19 at 21:00 Atorvastatin Calcium (Lipitor) 40 mg HS PO Last administered on 02/02/19at 23:34; Admin Dose 40 MG; Start 02/02/19 at 21:00 Aspirin (Aspirin) 81 mg DAILY PO ; Start 02/03/19 at 09:00 Broderick Upton DO Feb 03, 2019 16:16
[2019-02-03] MEDS: ATORVASTATIN 40 MG TAB PO SCH (22:53)
[2019-02-03] MEDS: METOPROLOL (XL) 25 MG TAB PO SCH (22:54)
[2019-02-04] MEDS ORDERED: DIGOXIN 500 MCG INJ IV ONE (01:00)
[2019-02-04 03:42] VITALS: BP 127/88; PULSE 111; RESP 23
[2019-02-04] MEDS: SOD CHLORIDE 0.9% 1,000 ML IV SCH ×2 (06:02→20:29)
[2019-02-04 07:32] VITALS: BP 159/95; PULSE 53; RESP 16
[2019-02-04] MEDS: ASPIRIN 81 MG TAB PO SCH (09:00)
[2019-02-04] MEDS: ENOXAPARIN 60 MG/0.6 ML SYG SC SCH (09:23)
[2019-02-04] MEDS: METOPROLOL (XL) 25 MG TAB PO SCH (10:11)
[2019-02-04] MEDS: LISINOPRIL 5 MG TAB PO SCH (10:13)
[2019-02-04] MEDS ORDERED: METO-335 PO (10:47)
[2019-02-04] MEDS ORDERED: ATOR40TA68 PO (10:47)
[2019-02-04] MEDS ORDERED: ASPI-831 PO (10:47)
[2019-02-04 11:27] VITALS: BP 149/90; PULSE 101; RESP 20
--- NOTE | 2019-02-04 11:38 | PN ---
Date/Time of Note Date/Time of Note DATE: 02/04/19 TIME: 11:36 Subjective Patient is lethargic but more arousable. No complaints of chest pain or shortness of breath Objective Vitals Vital Signs Date Temp Pulse Resp B/P (MAP) Pulse Ox O2 O2 Flow FiO2 Time Delivery Rate 02/04/19 97.6 101 20 149/90 11:27 (109) 02/04/19 96 07:32 02/03/19 Nasal 2.0 20:00 Cannula Intake and Output 02/03/19 02/03/19 02/04/19 1515:00 23:00 07:00 IntakeIntake Total 1070 ml BalanceBalance 1070 ml Bilateral rhonchi Regular rate and rhythm Soft nontender nondistended normoactive bowel sounds No edema Moves all extremities. Does not cooperate with the rest of the exam Results Result Diagram: 02/04/19 0500 02/04/19 0500 Medications Medications Current Medications Sodium Chloride 1,000 ml @ 80 mls/hr [id number] IV Last administered on 02/04/19at 06:02; Admin Dose 80 MLS/HR; Start 02/02/19 at 16:00 Enoxaparin Sodium (Lovenox) 55 mg Q12 SC Last administered on 02/04/19at 09:23; Admin Dose 55 MG; Start 02/02/19 at 21:00 Atorvastatin Calcium (Lipitor) 40 mg HS PO Last administered on 02/03/19at 22:53; Admin Dose 40 MG; Start 02/02/19 at 21:00 Aspirin (Aspirin) 81 mg DAILY PO ; Start 02/03/19 at 09:00 Metoprolol Succinate (Toprol Xl) 25 mg BID PO Last administered on 02/04/19at 10:11; Admin Dose 25 MG; Start 02/03/19 at 21:00 Lisinopril (Zestril) 2.5 mg DAILY PO Last administered on 02/04/19at 10:13; Admin Dose 2.5 MG; Start 02/04/19 at 09:00 Ceftriaxone Sodium 50 ml @ 100 mls/hr Q24H IVPB ; Start 02/04/19 at 11:30 VTE Prophylaxis Risk score (from Nsg)>0 risk: 3 SCD applied (from Nsg): No SCD contraindication: other Pharmacological prophylaxis: LMWH Lines/Catheters IV Catheter Type: Saline Lock Reyes in Place: No Assessment/Plan Assessment/Plan 79-year-old female with rapid atrial fibrillation, rate controlled Hypertension, well controlled Cardiomyopathy Valvular heart disease Altered mental status, improved Leukocytosis of unclear etiology Start empiric Rocephin Monitor CBC Physical therapy Head CT Discharge planning to SNF in a.m. Plan of care was discussed with SINA Ramires MD Feb 04, 2019 11:38
[2019-02-04] MEDS: CEFTRIAXONE 1 GM/50 ML (PMX) 50 ML IVPB SCH (12:17)
[2019-02-04] MEDS ORDERED: METOPROLOL (XL) 25 MG TAB PO ONE (12:26)
--- NOTE | 2019-02-04 12:29 | CONS ---
Assessment/Plan Assessment/Plan Hospital Course (Demo Recall) Atrial fibrillation with rapid ventricular rates-improved Elevated troponin-trending down Cardiomyopathy Mitral and tricuspid valve regurgitation Encephalopathy Increase dose of beta-swati Switch Lovenox to Eliquis LAVERNE inhibitor as renal function blood pressure permits Aspirin and statin therapy Consultation Date/Type/Reason Admit Date/Time Feb 02, 2019 at 13:55 Initial Consult Date Type of Consult Cardiology Date/Time of Note DATE: 02/04/19 TIME: 12:27 24 HR Interval Summary Free Text/Dictation Chest pain or shortness of breath. More awake today Exam/Review of Systems Vital Signs Vitals Vital Signs Date Temp Pulse Resp B/P (MAP) Pulse Ox O2 O2 Flow FiO2 Time Delivery Rate 02/04/19 97.6 101 20 149/90 11:27 (109) 02/04/19 Nasal 2.0 08:00 Cannula 02/04/19 96 07:32 Intake and Output 02/03/19 02/03/19 02/04/19 1414:59 22:59 06:59 IntakeIntake Total 1070 ml BalanceBalance 1070 ml Exam Exam Sleeping but arousable, following commands, asking to go home Head: normocephalic Respiratory: other (Coarse breath sounds bilaterally, no wheezing) Cardiovascular: irregular rhythm, systolic murmur Gastrointestinal: soft, non-tender, bowel sounds Extremities: other (No significant edema) Labs Result Diagram: 02/04/19 0500 02/04/19 0500 Results 24hrs Laboratory Tests Test 02/04/19 05:00 White Blood Count 18.1 H Red Blood Count 4.38 Hemoglobin 13.7 Hematocrit 43.5 Mean Corpuscular Volume 99.3 Mean Corpuscular Hemoglobin 31.3 Mean Corpuscular Hemoglobin Concent 31.5 L Red Cell Distribution Width 14.6 H Platelet Count 212 # Mean Platelet Volume 12.3 H Immature Granulocytes % 0.700 H Neutrophils % 87.1 H Lymphocytes % 5.4 L Monocytes % 6.7 Eosinophils % 0.0 Basophils % 0.1 Nucleated Red Blood Cells % 0.3 H Immature Granulocytes # 0.120 H Neutrophils # 15.8 H Lymphocytes # 1.0 Monocytes # 1.2 H Eosinophils # 0.0 Basophils # 0.0 Nucleated Red Blood Cells # 0.1 H Sodium Level 144 Potassium Level 4.0 Chloride Level 117 H Carbon Dioxide Level 19 L Anion Gap 8 Blood Urea Nitrogen 39 H Creatinine 0.94 Est Glomerular Filtrat Rate mL/min Glucose Level 77 Calcium Level 7.9 L Medications Medications Current Medications Sodium Chloride 1,000 ml @ 80 mls/hr [id number] IV Last administered on 02/04/19 06:02; Admin Dose 80 MLS/HR; Start 02/02/19 at 16:00 Enoxaparin Sodium (Lovenox) 55 mg Q12 SC Last administered on 02/04/19 09:23; Admin Dose 55 MG; Start 02/02/19 at 21:00 Atorvastatin Calcium (Lipitor) 40 mg HS PO Last administered on 02/03/19at 22:53; Admin Dose 40 MG; Start 02/02/19 at 21:00 Aspirin (Aspirin) 81 mg DAILY PO ; Start 02/03/19 at 09:00 Metoprolol Succinate (Toprol Xl) 25 mg BID PO Last administered on 02/04/19at 10:11; Admin Dose 25 MG; Start 02/03/19 at 21:00 Lisinopril (Zestril) 2.5 mg DAILY PO Last administered on 02/04/19 10:13; Admin Dose 2.5 MG; Start 02/04/19 at 09:00 Ceftriaxone Sodium 50 ml @ 100 mls/hr Q24H IVPB Last administered on 02/04/19 12:17; Admin Dose 100 MLS/HR; Start 02/04/19 at 11:30 Broderick Upton DO Feb 04, 2019 12:29
[2019-02-04] MEDS ORDERED: DILTIAZEM 25 MG INJ IV PRN (12:30)
[2019-02-04 15:13] VITALS: BP 146/73; PULSE 94; RESP 16
[2019-02-04 19:56] VITALS: BP 121/92; PULSE 84; RESP 18
[2019-02-04] MEDS: ATORVASTATIN 40 MG TAB PO SCH (20:29)
[2019-02-04] MEDS: APIXABAN 5 MG TABLET PO SCH (20:29)
[2019-02-04] MEDS: METOPROLOL (XL) 50 MG TAB PO SCH (20:31)
[2019-02-04 23:36] VITALS: BP 127/82; PULSE 96; RESP 21
[2019-02-05 03:36] VITALS: BP 137/83; PULSE 91; RESP 22
[2019-02-05] MEDS: SOD CHLORIDE 0.9% 1,000 ML IV SCH (05:38)
[2019-02-05 08:02] VITALS: BP 148/100; PULSE 101; RESP 20
[2019-02-05] MEDS: LISINOPRIL 5 MG TAB PO SCH (08:30)
[2019-02-05] MEDS: ASPIRIN 81 MG TAB PO SCH (08:30)
[2019-02-05] MEDS: METOPROLOL (XL) 50 MG TAB PO SCH ×2 (08:31→20:23)
[2019-02-05] MEDS: APIXABAN 5 MG TABLET PO SCH ×2 (08:31→20:23)
[2019-02-05] MEDS: NICOTINE (14 MG/24 HR) PATCH TRANSDERM SCH (11:19)
[2019-02-05] MEDS: CEFTRIAXONE 1 GM/50 ML (PMX) 50 ML IVPB SCH (11:19)
--- NOTE | 2019-02-05 11:20 | PN ---
Date/Time of Note Date/Time of Note DATE: 02/05/19 TIME: 11:17 Assessment/Plan VTE Prophylaxis Risk score (from Ns)>0 risk: 2 SCD applied (from Ns): Yes Pharmacological prophylaxis: apixaban Lines/Catheters IV Catheter Type (from Nrs): Saline Lock Urinary Cath still in place: No Assessment/Plan Assessment/Plan 1. cards: a fib with rvr, now better control, increase metoprolol (b) dilated cardiomyopatjhy, ef 35% 2. pulm: tobacco related lung disease (b) mild to mod pulm htn (c) hypoxemia, unclear etiology, check cxr, possibly chronic resp failure, may require home O2 (de) ongoing tobacco use 3. leukocytosis, unclear etiology, checck cxr, ua clear, improved Result Diagram: 02/05/19 0525 02/04/19 0500 Results 24hrs Laboratory Tests Test 02/05/19 05:25 White Blood Count 13.2 #H Red Blood Count 3.98 L Hemoglobin 12.5 Hematocrit 39.7 Mean Corpuscular Volume 99.7 Mean Corpuscular Hemoglobin 31.4 Mean Corpuscular Hemoglobin Concent 31.5 L Red Cell Distribution Width 14.6 H Platelet Count 247 Mean Platelet Volume 11.9 H Immature Granulocytes % 0.400 Neutrophils % 85.8 H Lymphocytes % 5.5 L Monocytes % 8.0 Eosinophils % 0.1 Basophils % 0.2 Nucleated Red Blood Cells % 0.2 H Immature Granulocytes # 0.050 H Neutrophils # 11.3 H Lymphocytes # 0.7 L Monocytes # 1.1 H Eosinophils # 0.0 Basophils # 0.0 Nucleated Red Blood Cells # 0.0 Subjective 24 Hr Interval Summary Free Text/Dictation not feeling well, no oob, eating ok requests nicotine patch Exam/Review of Systems Exam Vitals Vital Signs Date Temp Pulse Resp B/P (MAP) Pulse Ox O2 O2 Flow FiO2 Time Delivery Rate 02/05/19 97.4 101 20 148/100 90 Room Air 08:02 (116) 02/04/19 2.0 08:00 Intake and Output 02/04/19 02/04/19 02/05/19 1515:00 23:00 07:00 IntakeIntake Total 300 ml BalanceBalance 300 ml Exam nad, soft nt, ctab, irreg Results Results 24hrs Laboratory Tests Test 02/05/19 05:25 White Blood Count 13.2 #H Red Blood Count 3.98 L Hemoglobin 12.5 Hematocrit 39.7 Mean Corpuscular Volume 99.7 Mean Corpuscular Hemoglobin 31.4 Mean Corpuscular Hemoglobin Concent 31.5 L Red Cell Distribution Width 14.6 H Platelet Count 247 Mean Platelet Volume 11.9 H Immature Granulocytes % 0.400 Neutrophils % 85.8 H Lymphocytes % 5.5 L Monocytes % 8.0 Eosinophils % 0.1 Basophils % 0.2 Nucleated Red Blood Cells % 0.2 H Immature Granulocytes # 0.050 H Neutrophils # 11.3 H Lymphocytes # 0.7 L Monocytes # 1.1 H Eosinophils # 0.0 Basophils # 0.0 Nucleated Red Blood Cells # 0.0 Medications Medication Current Medications Sodium Chloride 1,000 ml @ 80 mls/hr [id number] IV Last administered on 02/05/19 05:38; Admin Dose 80 MLS/HR; Start 02/02/19 at 16:00 Atorvastatin Calcium (Lipitor) 40 mg HS PO Last administered on 02/04/19at 20:29; Admin Dose 40 MG; Start 02/02/19 at 21:00 Aspirin (Aspirin) 81 mg DAILY PO Last administered on 02/05/19 08:30; Admin Dose 81 MG; Start 02/03/19 at 09:00 Lisinopril (Zestril) 2.5 mg DAILY PO Last administered on 02/05/19 08:30; Admin Dose 2.5 MG; Start 02/04/19 at 09:00 Ceftriaxone Sodium 50 ml @ 100 mls/hr Q24H IVPB Last administered on 02/04/19 12:17; Admin Dose 100 MLS/HR; Start 02/04/19 at 11:30 Metoprolol Succinate (Toprol Xl) 50 mg BID PO Last administered on 02/05/19 08:31; Admin Dose 50 MG; Start 02/04/19 at 21:00 Apixaban (Eliquis) 5 mg BID PO Last administered on 02/05/19 08:31; Admin Dose 5 MG; Start 02/04/19 at 21:00 Diltiazem HCl (Cardizem Iv) 10 mg Q2H PRN IV hr>130; Start 02/04/19 at 12:30 Nicotine (Nicoderm 14 Mg/ 24hr) 1 patch DAILY TRANSDERM ; Start 02/05/19 at 11:30 COLLEEN NGUYEN MD Feb 05, 2019 11:20
[2019-02-05 11:33] VITALS: BP 175/103; PULSE 66; RESP 20
--- NOTE | 2019-02-05 13:12 | CONS ---
Assessment/Plan Assessment/Plan Assessment/Plan (Daily) Assessment Atrial fibrillation with rapid ventricular rates-improved Elevated troponin-trending down Cardiomyopathy Mitral and tricuspid valve regurgitation Encephalopathy Plan continue current meds Consultation Date/Type/Reason Admit Date/Time Feb 02, 2019 at 13:55 Initial Consult Date Type of Consult Cardiology Date/Time of Note DATE: 02/05/19 TIME: 13:11 24 HR Interval Summary Free Text/Dictation no distress Detailed Summary Respiratory: no complaints Cardiovascular: no complaints Gastrointestinal: no complaints Musculoskeletal: no complaints Skin: no complaints Neurologic: no complaints Endocrine: no complaints Lymphatic: no complaints Exam/Review of Systems Vital Signs Vitals Vital Signs Date Temp Pulse Resp B/P (MAP) Pulse Ox O2 O2 Flow FiO2 Time Delivery Rate 02/05/19 97.3 66 20 175/103 95 Room Air 11:33 (127) 02/04/19 2.0 08:00 Intake and Output 02/04/19 02/04/19 02/05/19 1515:00 23:00 07:00 IntakeIntake Total 300 ml BalanceBalance 300 ml Exam Constitutional: frail Head: normocephalic, atraumatic Respiratory: clear to auscultation Cardiovascular: irregular rhythm Gastrointestinal: soft Musculoskeletal: nl extremities to inspection Extremities: normal pulses Labs Result Diagram: 02/05/19 0525 02/04/19 0500 Results 24hrs Laboratory Tests Test 02/05/19 05:25 White Blood Count 13.2 #H Red Blood Count 3.98 L Hemoglobin 12.5 Hematocrit 39.7 Mean Corpuscular Volume 99.7 Mean Corpuscular Hemoglobin 31.4 Mean Corpuscular Hemoglobin Concent 31.5 L Red Cell Distribution Width 14.6 H Platelet Count 247 Mean Platelet Volume 11.9 H Immature Granulocytes % 0.400 Neutrophils % 85.8 H Lymphocytes % 5.5 L Monocytes % 8.0 Eosinophils % 0.1 Basophils % 0.2 Nucleated Red Blood Cells % 0.2 H Immature Granulocytes # 0.050 H Neutrophils # 11.3 H Lymphocytes # 0.7 L Monocytes # 1.1 H Eosinophils # 0.0 Basophils # 0.0 Nucleated Red Blood Cells # 0.0 Medications Medications Current Medications Sodium Chloride 1,000 ml @ 80 mls/hr [id number] IV Last administered on 02/05/19at 05:38; Admin Dose 80 MLS/HR; Start 02/02/19 at 16:00 Atorvastatin Calcium (Lipitor) 40 mg HS PO Last administered on 02/04/19at 20:29; Admin Dose 40 MG; Start 02/02/19 at 21:00 Aspirin (Aspirin) 81 mg DAILY PO Last administered on 02/05/19at 08:30; Admin Dose 81 MG; Start 02/03/19 at 09:00 Lisinopril (Zestril) 2.5 mg DAILY PO Last administered on 02/05/19at 08:30; Admin Dose 2.5 MG; Start 02/04/19 at 09:00 Ceftriaxone Sodium 50 ml @ 100 mls/hr Q24H IVPB Last administered on 02/05/19 11:19; Admin Dose 100 MLS/HR; Start 02/04/19 at 11:30 Apixaban (Eliquis) 5 mg BID PO Last administered on 02/05/19at 08:31; Admin Dose 5 MG; Start 02/04/19 at 21:00 Diltiazem HCl (Cardizem Iv) 10 mg Q2H PRN IV hr>130; Start 02/04/19 at 12:30 Nicotine (Nicoderm 14 Mg/ 24hr) 1 patch DAILY TRANSDERM Last administered on 02/05/19at 11:19; Admin Dose 1 PATCH; Start 02/05/19 at 11:30 Metoprolol Succinate (Toprol Xl) 100 mg BID PO ; Start 02/05/19 at 21:00 KENNEDY KUMAR MD Feb 05, 2019 13:12
[2019-02-05 15:45] VITALS: BP 141/101; PULSE 98; RESP 20
[2019-02-05] MEDS: ATORVASTATIN 40 MG TAB PO SCH (20:23)
[2019-02-05 20:51] VITALS: BP 166/77; PULSE 108; RESP 18
[2019-02-06] VITALS (7 sets, daily range): BP systolic 133–169; BP diastolic 91–108; PULSE 59–110; RESP 18–24
[2019-02-06] MEDS: NICOTINE (14 MG/24 HR) PATCH TRANSDERM SCH (09:05)
[2019-02-06] MEDS: METOPROLOL (XL) 50 MG TAB PO SCH ×2 (09:06→20:31)
[2019-02-06] MEDS: APIXABAN 5 MG TABLET PO SCH ×2 (09:06→20:28)
[2019-02-06] MEDS: LISINOPRIL 5 MG TAB PO SCH (09:06)
[2019-02-06] MEDS: ASPIRIN 81 MG TAB PO SCH (09:06)
--- NOTE | 2019-02-06 11:56 | PN ---
Date/Time of Note Date/Time of Note DATE: 02/06/19 TIME: 11:53 Assessment/Plan VTE Prophylaxis Risk score (from Ns)>0 risk: 4 SCD applied (from Ns): Yes Pharmacological prophylaxis: apixaban Lines/Catheters IV Catheter Type (from Nrs): Saline Lock Urinary Cath still in place: No Assessment/Plan Assessment/Plan 1. cards: a fib, with rvr, now rate controlled, cont med titrattion 9b) mod-sever mitral regurg, increase lisinopril, add norvasc (c) fluid overload and chf noted on cxr, add lasix 2. copd 3. increase activity as tolerated \ Result Diagram: 02/06/1918 02/06/1918 Results 24hrs Laboratory Tests Test 02/06/19 05:18 White Blood Count 11.7 H Red Blood Count 4.24 Hemoglobin 13.4 Hematocrit 44.3 Mean Corpuscular Volume 104.5 H Mean Corpuscular Hemoglobin 31.6 Mean Corpuscular Hemoglobin Concent 30.2 L Red Cell Distribution Width 15.0 H Platelet Count 230 Mean Platelet Volume 11.9 H Immature Granulocytes % 0.500 H Neutrophils % 83.8 H Lymphocytes % 8.1 L Monocytes % 7.1 Eosinophils % 0.2 Basophils % 0.3 Nucleated Red Blood Cells % 0.2 H Immature Granulocytes # 0.060 H Neutrophils # 9.8 H Lymphocytes # 0.9 Monocytes # 0.8 Eosinophils # 0.0 Basophils # 0.0 Nucleated Red Blood Cells # 0.0 Sodium Level 142 Potassium Level 4.7 Chloride Level 118 H Carbon Dioxide Level 17 L Anion Gap 7 Blood Urea Nitrogen 33 H Creatinine 0.70 Est Glomerular Filtrat Rate mL/min Glucose Level 112 Calcium Level 8.1 L Subjective 24 Hr Interval Summary Free Text/Dictation not feeling well, weakness, Exam/Review of Systems Exam Vitals Vital Signs Date Temp Pulse Resp B/P (MAP) Pulse Ox O2 O2 Flow FiO2 Time Delivery Rate 02/06/19 Nasal 3.0 08:30 Cannula 02/06/19 96.7 64 24 160/101 89 07:38 (120) Intake and Output 02/05/19 02/05/19 02/06/19 1515:00 23:00 07:00 IntakeIntake Total 240 ml 610 ml 100 ml BalanceBalance 240 ml 610 ml 100 ml Exam looks poorly ctab, irreg, soft nt, no edema Results Results 24hrs Laboratory Tests Test 02/06/19 05:18 White Blood Count 11.7 H Red Blood Count 4.24 Hemoglobin 13.4 Hematocrit 44.3 Mean Corpuscular Volume 104.5 H Mean Corpuscular Hemoglobin 31.6 Mean Corpuscular Hemoglobin Concent 30.2 L Red Cell Distribution Width 15.0 H Platelet Count 230 Mean Platelet Volume 11.9 H Immature Granulocytes % 0.500 H Neutrophils % 83.8 H Lymphocytes % 8.1 L Monocytes % 7.1 Eosinophils % 0.2 Basophils % 0.3 Nucleated Red Blood Cells % 0.2 H Immature Granulocytes # 0.060 H Neutrophils # 9.8 H Lymphocytes # 0.9 Monocytes # 0.8 Eosinophils # 0.0 Basophils # 0.0 Nucleated Red Blood Cells # 0.0 Sodium Level 142 Potassium Level 4.7 Chloride Level 118 H Carbon Dioxide Level 17 L Anion Gap 7 Blood Urea Nitrogen 33 H Creatinine 0.70 Est Glomerular Filtrat Rate mL/min Glucose Level 112 Calcium Level 8.1 L Medications Medication Current Medications Atorvastatin Calcium (Lipitor) 40 mg HS PO Last administered on 02/05/19 20:23; Admin Dose 40 MG; Start 02/02/19 at 21:00 Aspirin (Aspirin) 81 mg DAILY PO Last administered on 02/06/19 09:06; Admin Dose 81 MG; Start 02/03/19 at 09:00 Lisinopril (Zestril) 2.5 mg DAILY PO Last administered on 02/06/19 09:06; Admin Dose 2.5 MG; Start 02/04/19 at 09:00 Ceftriaxone Sodium 50 ml @ 100 mls/hr Q24H IVPB Last administered on 02/05/19 11:19; Admin Dose 100 MLS/HR; Start 02/04/19 at 11:30 Apixaban (Eliquis) 5 mg BID PO Last administered on 02/06/19 09:06; Admin Dose 5 MG; Start 02/04/19 at 21:00 Diltiazem HCl (Cardizem Iv) 10 mg Q2H PRN IV hr>130; Start 02/04/19 at 12:30 Nicotine (Nicoderm 14 Mg/ 24hr) 1 patch DAILY TRANSDERM Last administered on 7/14/19at 09:05; Admin Dose 1 PATCH; Start 02/05/19 at 11:30 Metoprolol Succinate (Toprol Xl) 100 mg BID PO Last administered on 02/06/19at 09:06; Admin Dose 100 MG; Start 02/05/19 at 21:00 Hydralazine HCl (Apresoline) 25 mg Q6H PRN PO ELEVATED SYSTOLIC BP Last administered on 02/06/19at 01:31; Admin Dose 25 MG; Start 02/06/19 at 01:30 COLLEEN NGUYEN MD Feb 06, 2019 11:56
[2019-02-06] MEDS: CEFTRIAXONE 1 GM/50 ML (PMX) 50 ML IVPB SCH (12:10)
[2019-02-06] MEDS: LISINOPRIL 10 MG TAB PO SCH (12:25)
[2019-02-06] MEDS: FUROSEMIDE 40 MG INJ IV SCH ×2 (12:25→23:59)
[2019-02-06] MEDS: AMLODIPINE 5 MG TAB PO SCH ×2 (12:26→20:31)
--- NOTE | 2019-02-06 15:01 | CONS ---
Assessment/Plan Cardiology NYHA: II Heart Failure Type: Acute Heart Failure Type: Systolic Assessment/Plan Hospital Course (Demo Recall) Atrial fibrillation with rapid ventricular rates-improved Elevated troponin-trending down Acute decompensated systolic congestive heart failure Cardiomyopathy Mitral and tricuspid valve regurgitation Encephalopathy Patient started on IV diuretics given respiratory status LAVERNE inhibitor as renal function blood pressure permits Continue beta-swati and titrate as needed Aspirin and statin therapy Consultation Date/Type/Reason Admit Date/Time Feb 02, 2019 at 13:55 Initial Consult Date Type of Consult Cardiology Date/Time of Note DATE: 02/06/19 TIME: 15:00 24 HR Interval Summary Free Text/Dictation Denies chest pain or shortness of breath with poor historian Exam/Review of Systems Vital Signs Vitals Vital Signs Date Temp Pulse Resp B/P (MAP) Pulse Ox O2 O2 Flow FiO2 Time Delivery Rate 02/06/19 97.4 100 24 133/91 90 Nasal 12:15 (105) Cannula 02/06/19 3.0 08:30 Intake and Output 02/05/19 02/05/19 02/06/19 1515:00 23:00 07:00 IntakeIntake Total 240 ml 610 ml 100 ml BalanceBalance 240 ml 610 ml 100 ml Exam Constitutional: alert (Confused, taking of oxygen at times) Head: normocephalic Respiratory: other (Coarse breath sounds bilaterally, no wheezing) Cardiovascular: irregular rhythm (S1-S2 heard) Gastrointestinal: soft, non-tender, bowel sounds Extremities: edema (Trace) Labs Result Diagram: 02/06/19 0518 02/06/19 0518 Results 24hrs Laboratory Tests Test 02/06/19 05:18 White Blood Count 11.7 H Red Blood Count 4.24 Hemoglobin 13.4 Hematocrit 44.3 Mean Corpuscular Volume 104.5 H Mean Corpuscular Hemoglobin 31.6 Mean Corpuscular Hemoglobin Concent 30.2 L Red Cell Distribution Width 15.0 H Platelet Count 230 Mean Platelet Volume 11.9 H Immature Granulocytes % 0.500 H Neutrophils % 83.8 H Lymphocytes % 8.1 L Monocytes % 7.1 Eosinophils % 0.2 Basophils % 0.3 Nucleated Red Blood Cells % 0.2 H Immature Granulocytes # 0.060 H Neutrophils # 9.8 H Lymphocytes # 0.9 Monocytes # 0.8 Eosinophils # 0.0 Basophils # 0.0 Nucleated Red Blood Cells # 0.0 Sodium Level 142 Potassium Level 4.7 Chloride Level 118 H Carbon Dioxide Level 17 L Anion Gap 7 Blood Urea Nitrogen 33 H Creatinine 0.70 Est Glomerular Filtrat Rate mL/min Glucose Level 112 Calcium Level 8.1 L Medications Medications Current Medications Atorvastatin Calcium (Lipitor) 40 mg HS PO Last administered on 02/05/19 20:23; Admin Dose 40 MG; Start 02/02/19 at 21:00 Aspirin (Aspirin) 81 mg DAILY PO Last administered on 02/06/19 09:06; Admin Dose 81 MG; Start 02/03/19 at 09:00 Ceftriaxone Sodium 50 ml @ 100 mls/hr Q24H IVPB Last administered on 02/06/19 12:10; Admin Dose 100 MLS/HR; Start 02/04/19 at 11:30 Apixaban (Eliquis) 5 mg BID PO Last administered on 02/06/19 09:06; Admin Dose 5 MG; Start 02/04/19 at 21:00 Diltiazem HCl (Cardizem Iv) 10 mg Q2H PRN IV hr>130; Start 02/04/19 at 12:30 Nicotine (Nicoderm 14 Mg/ 24hr) 1 patch DAILY TRANSDERM Last administered on 02/06/19 09:05; Admin Dose 1 PATCH; Start 02/05/19 at 11:30 Metoprolol Succinate (Toprol Xl) 100 mg BID PO Last administered on 02/06/19 09:06; Admin Dose 100 MG; Start 02/05/19 at 21:00 Hydralazine HCl (Apresoline) 25 mg Q6H PRN PO ELEVATED SYSTOLIC BP Last administered on 02/06/19 01:31; Admin Dose 25 MG; Start 02/06/19 at 01:30 Lisinopril (Zestril) 10 mg DAILY PO Last administered on 02/06/19 12:25; Admin Dose 10 MG; Start 02/06/19 at 12:00 Amlodipine Besylate (Norvasc) 5 mg BID PO Last administered on 02/06/19 12:26; Admin Dose 5 MG; Start 02/06/19 at 12:00 Furosemide (Lasix) 40 mg Q12H IV Last administered on 02/06/19 12:25; Admin D ose 40 MG; Start 02/06/19 at 12:00 Broderick Upton DO Feb 06, 2019 15:01
[2019-02-06] MEDS: ATORVASTATIN 40 MG TAB PO SCH (20:28)
[2019-02-07 00:30] VITALS: BP 167/114; PULSE 102; RESP 18
[2019-02-07 04:27] VITALS: BP 151/84; PULSE 74; RESP 18
[2019-02-07 07:46] VITALS: BP 160/91; PULSE 103; RESP 19
[2019-02-07] MEDS: ASPIRIN 81 MG TAB PO SCH (09:33)
[2019-02-07] MEDS: METOPROLOL (XL) 50 MG TAB PO SCH ×2 (09:33→20:41)
[2019-02-07] MEDS: LISINOPRIL 10 MG TAB PO SCH (09:34)
[2019-02-07] MEDS: AMLODIPINE 5 MG TAB PO SCH ×2 (09:34→20:41)
[2019-02-07] MEDS: NICOTINE (14 MG/24 HR) PATCH TRANSDERM SCH (09:35)
[2019-02-07] MEDS: APIXABAN 5 MG TABLET PO SCH ×2 (09:36→20:42)
[2019-02-07] MEDS ORDERED: METO-319 PO (11:23)
[2019-02-07] MEDS ORDERED: APIX5TAB PO (11:23)
[2019-02-07] MEDS ORDERED: LISI10TA2 PO (11:23)
[2019-02-07] MEDS ORDERED: Nicotine (14 Mg/24 Hr) TRANSDERM (11:23)
[2019-02-07 11:28] VITALS: BP 121/83; PULSE 82; RESP 19
--- NOTE | 2019-02-07 12:37 | DS ---
DATE OF ADMISSION: 02/02/2019 DATE OF DISCHARGE: 02/07/2019 DISCHARGE DIAGNOSES: 1. A 79-year-old female with rapid atrial fibrillation, rate controlled. 2. Hypertension, stable. 3. Cardiomyopathy. 4. Mitral and tricuspid valve regurgitation. 5. Chronic obstructive pulmonary disease with exacerbation, resolved. 6. Encephalopathy, improved. 7. Generalized weakness. HOSPITAL COURSE: A 79-year-old female with multiple other medical problems on history of tobacco use , presented to Emergency Room with generalized weakness and altered mentation. The patient was found to be in rapid atrial fibrillation. Her metoprolol was increased. Her heart rate was controlled. She was seen in consultation by Dr. Upton. Eliquis was added for stroke prophylaxis. Initially, patient was quite lethargic and confused. Her mental status gradually improved. A 2D ech o showed decreased ejection fraction as well as mitral and tricuspid valve regurgitation. The patien t received IV diuretics and LAVERNE inhibitors. Her condition was discussed in length with her brother a nd [id number] who live in [facility]. They requested a palliative care evaluation. I co nsulted Dr. Gimenez. The patient is in stable condition for transition to senior care facility for physical therapy and rehabilitation. She has a long history of heavy tobacco use. Nicotine patc h was continued. MEDICATIONS ON DISCHARGE: 1. Eliquis 5 mg p.o. b.i.d. 2. Aspirin 81 mg daily. 3. Atorvastatin 40 mg at bedtime. 4. Lisinopril 10 mg daily. 5. Toprol-XL 100 mg b.i.d. 6. Norvasc 5 mg p.o. daily. 7. Nicotine patch 14 mg daily. FOLLOWUP: With PCP following discharge from the skilled facility. Follow up with cardiology in 2 we eks. Dictated By: SINA CHÁVEZ/EDUARDO Conf#: [id number] DID#: [id number]
--- NOTE | 2019-02-07 13:04 | CONS ---
Consultation Date/Type/Reason Admit Date/Time Feb 02, 2019 at 13:55 Date/Time of Note DATE: 02/07/19 TIME: 13:03 Hx of Present Illness Patient seen examined , spoken with family and DR. Camarillo . Full note to follow Past Medical History Home Meds Active Scripts Lisinopril* (Lisinopril*) 10 Mg Tablet, 10 MG PO DAILY for 30 Days, #30 TAB Prov:SINA CAMARILLO MD 02/07/19 Metoprolol Succinate* (Toprol XL*) 50 Mg Tab.er.24h, 100 MG PO BID for 30 Days Prov:SINA CAMARILLO MD 02/07/19 Apixaban* (Eliquis*) 5 Mg Tablet, 5 MG PO BID for 30 Days, TAB Prov:SINA CAMARILLO MD 02/07/19 [Nicotine (14 Mg/24 Hr)] 1 PATCH PATCH No Conflict Check, 1 PATCH TRANSDERM DAILY for 30 Days Prov:SINA CAMARILLO MD 02/07/19 Aspirin (Aspirin) 81 Mg Chew, 81 MG PO DAILY for 30 Days, TAB Prov:SINA CAMARILLO MD 02/04/19 Atorvastatin* (Atorvastatin*) 40 Mg Tablet, 40 MG PO HS for 30 Days, TAB Prov:SINA CAMARILLO MD 02/04/19 Discontinued Reported Medications Benazepril Hcl* (Benazepril Hcl*) 40 Mg Tablet, 40 MG PO DAILY, #30 TAB 02/02/19 Diltiazem Hcl* (Cardizem LA*) 300 Mg Tab.sr.24h, 300 MG PO DAILY, #30 TAB.SA 02/02/19 Fluticasone/Vilanterol (Breo Ellipta 200-25 Mcg INH) 1 Each Blst.w.dev, 1 PUFF INHALATION DAILY, #1 INHALER 09/19/18 Oxybutynin Chloride* (Ditropan* XL) 5 Mg Tabsr, 5 MG PO DAILY, TAB.SA 09/19/18 Valsartan* (Diovan*) 320 Mg Tablet, 320 MG PO DAILY, TAB 09/19/18 Clopidogrel Bisulfate (Clopidogrel) 75 Mg Tablet, 75 MG PO DAILY, #30 TAB 09/19/18 Discontinued Scripts Ondansetron Hcl* (Zofran*) 4 Mg Tablet, 4 MG PO Q6H for NAUSEA AND/OR VOMITING, #20 TAB Prov:JAY RAMIREZ MD 09/25/18 Amoxicillin/Potassium Clav (Amox-Clav 875-125 mg Tablet) 875-125 mg Tab, 1 TAB PO BID for 3 Days, #6 TAB Prov:JAY RAMIREZ MD 09/25/18 Amoxicillin/Potassium Clav (Amox-Clav 875-125 mg Tablet) 875-125 mg Tab, 1 TAB PO BID for 7 Days, #14 TAB Prov:SERGEI SUAREZ MD 09/19/18 Medications Current Medications Atorvastatin Calcium (Lipitor) 40 mg HS PO Last administered on 02/06/19 20:28; Admin Dose 40 MG; Start 02/02/19 at 21:00 Aspirin (Aspirin) 81 mg DAILY PO Last administered on 02/07/19 09:33; Admin Dose 81 MG; Start 02/03/19 at 09:00 Ceftriaxone Sodium 50 ml @ 100 mls/hr Q24H IVPB Last administered on 02/06/19 12:10; Admin Dose 100 MLS/HR; Start 02/04/19 at 11:30 Apixaban (Eliquis) 5 mg BID PO Last administered on 02/07/19 09:36; Admin Dose 5 MG; Start 02/04/19 at 21:00 Diltiazem HCl (Cardizem Iv) 10 mg Q2H PRN IV hr>130; Start 02/04/19 at 12:30 Nicotine (Nicoderm 14 Mg/ 24hr) 1 patch DAILY TRANSDERM Last administered on 02/07/19 09:35; Admin Dose 1 PATCH; Start 02/05/19 at 11:30 Metoprolol Succinate (Toprol Xl) 100 mg BID PO Last administered on 02/07/19 09:33; Admin Dose 100 MG; Start 02/05/19 at 21:00 Hydralazine HCl (Apresoline) 25 mg Q6H PRN PO ELEVATED SYSTOLIC BP Last administered on 02/06/19 01:31; Admin Dose 25 MG; Start 02/06/19 at 01:30 Lisinopril (Zestril) 10 mg DAILY PO Last administered on 02/07/19 09:34; Admin Dose 10 MG; Start 02/06/19 at 12:00 Amlodipine Besylate (Norvasc) 5 mg BID PO Last administered on 02/07/19 09:34; Admin Dose 5 MG; Start 02/06/19 at 12:00 Furosemide (Lasix) 40 mg Q12H IV Last administered on 02/06/19at 23:59; Admin Dose 40 MG; Start 02/06/19 at 12:00 Allergies: Coded Allergies: Sulfa (Sulfonamide Antibiotics) (Verified Allergy, Severe, SWELLING AND ITCHING, 02/02/19) citalopram (Verified Allergy, Unknown, SWELLING AND ITCHING, 02/02/19) ibuprofen (Verified Allergy, Unknown, SWELLING AND ITCHING, 02/02/19) Social History Smoking Status: Current some day smoker Exam/Review of Systems Exam Vitals Vital Signs Date Temp Pulse Resp B/P (MAP) Pulse Ox O2 O2 Flow FiO2 Time Delivery Rate 02/07/19 98.5 82 19 121/83 95 Nasal 3.0 11:28 (96) Cannula Intake and Output 02/06/19 02/06/19 02/07/19 1515:00 23:00 07:00 IntakeIntake Total 50 ml 600 ml 100 ml OutputOutput Total 5 ml BalanceBalance 50 ml 595 ml 100 ml Results Result Diagram: 02/07/19 0531 02/07/19 0531 Results 24hrs Laboratory Tests Test 02/07/19 05:30 02/07/19 05:31 Vitamin B12 Level > 1000 H White Blood Count 12.6 H Red Blood Count 4.63 Hemoglobin 14.2 Hematocrit 47.0 Mean Corpuscular Volume 101.5 H Mean Corpuscular Hemoglobin 30.7 Mean Corpuscular Hemoglobin Concent 30.2 L Red Cell Distribution Width 14.9 H Platelet Count 242 Mean Platelet Volume 12.4 H Immature Granulocytes % 0.300 Neutrophils % 86.7 H Lymphocytes % 7.2 L Monocytes % 5.5 Eosinophils % 0.2 Basophils % 0.1 Nucleated Red Blood Cells % 0.0 Immature Granulocytes # 0.040 H Neutrophils # 11.0 H Lymphocytes # 0.9 Monocytes # 0.7 Eosinophils # 0.0 Basophils # 0.0 Nucleated Red Blood Cells # 0.0 Sodium Level 146 H Potassium Level 4.4 Chloride Level 112 H Carbon Dioxide Level 26 Anion Gap 8 Blood Urea Nitrogen 29 H Creatinine 0.66 Est Glomerular Filtrat Rate mL/min Glucose Level 119 Hemoglobin A1c 5.5 Calcium Level 8.5 Magnesium Level 1.9 Medications Medication Current Medications Atorvastatin Calcium (Lipitor) 40 mg HS PO Last administered on 02/06/19 20:28; Admin Dose 40 MG; Start 02/02/19 at 21:00 Aspirin (Aspirin) 81 mg DAILY PO Last administered on 02/07/19 09:33; Admin Dose 81 MG; Start 02/03/19 at 09:00 Ceftriaxone Sodium 50 ml @ 100 mls/hr Q24H IVPB Last administered on 02/06/19 12:10; Admin Dose 100 MLS/HR; Start 02/04/19 at 11:30 Apixaban (Eliquis) 5 mg BID PO Last administered on 02/07/19 09:36; Admin Dose 5 MG; Start 02/04/19 at 21:00 Diltiazem HCl (Cardizem Iv) 10 mg Q2H PRN IV hr>130; Start 02/04/19 at 12:30 Nicotine (Nicoderm 14 Mg/ 24hr) 1 patch DAILY TRANSDERM Last administered on 02/07/19 09:35; Admin Dose 1 PATCH; Start 02/05/19 at 11:30 Metoprolol Succinate (Toprol Xl) 100 mg BID PO Last administered on 02/07/19 09:33; Admin Dose 100 MG; Start 02/05/19 at 21:00 Hydralazine HCl (Apresoline) 25 mg Q6H PRN PO ELEVATED SYSTOLIC BP Last administered on 02/06/19 01:31; Admin Dose 25 MG; Start 02/06/19 at 01:30 Lisinopril (Zestril) 10 mg DAILY PO Last administered on 02/07/19 09:34; Admin Dose 10 MG; Start 02/06/19 at 12:00 Amlodipine Besylate (Norvasc) 5 mg BID PO Last administered on 02/07/19 09:34; Admin Dose 5 MG; Start 02/06/19 at 12:00 Furosemide (Lasix) 40 mg Q12H IV Last administered on 02/06/19 23:59; Admin Dose 40 MG; Start 02/06/19 at 12:00 BEN GARZA Feb 07, 2019 13:04
[2019-02-07] MEDS: CEFTRIAXONE 1 GM/50 ML (PMX) 50 ML IVPB SCH (13:12)
[2019-02-07] MEDS: FUROSEMIDE 40 MG INJ IV SCH (13:12)
[2019-02-07 16:18] VITALS: BP 151/80; PULSE 97; RESP 19
--- NOTE | 2019-02-07 19:11 | CONS ---
Assessment/Plan Cardiology NYHA: II Heart Failure Type: Acute Heart Failure Type: Systolic Assessment/Plan Hospital Course (Demo Recall) Atrial fibrillation with rapid ventricular rates-improved Elevated troponin-trending down Acute decompensated systolic congestive heart failure Cardiomyopathy Mitral and tricuspid valve regurgitation Encephalopathy Patient on IV diuretics, if continues to improve, switch to po next 1-2 days LAVERNE inhibitor as renal function blood pressure permits Continue beta-swati and titrate as needed Aspirin and statin therapy Suppl Mg Consultation Date/Type/Reason Admit Date/Time Feb 02, 2019 at 13:55 Initial Consult Date Type of Consult Cardiology Date/Time of Note DATE: 02/07/19 TIME: 19:09 24 HR Interval Summary Free Text/Dictation no cp,palp,sob Exam/Review of Systems Vital Signs Vitals Vital Signs Date Temp Pulse Resp B/P (MAP) Pulse Ox O2 O2 Flow FiO2 Time Delivery Rate 02/07/19 98.3 97 19 151/80 95 Nasal 3.0 16:18 (103) Cannula Intake and Output 02/06/19 02/06/19 02/07/19 1515:00 23:00 07:00 IntakeIntake Total 50 ml 600 ml 100 ml OutputOutput Total 5 ml BalanceBalance 50 ml 595 ml 100 ml Exam Constitutional: alert Head: normocephalic Respiratory: other Cardiovascular: irregular rhythm (s1s2) Gastrointestinal: soft, non-tender, bowel sounds Extremities: edema (tr) Labs Result Diagram: 02/07/19 0531 02/07/19 0531 Results 24hrs Laboratory Tests Test 02/07/19 05:30 02/07/19 05:31 Vitamin B12 Level > 1000 H White Blood Count 12.6 H Red Blood Count 4.63 Hemoglobin 14.2 Hematocrit 47.0 Mean Corpuscular Volume 101.5 H Mean Corpuscular Hemoglobin 30.7 Mean Corpuscular Hemoglobin Concent 30.2 L Red Cell Distribution Width 14.9 H Platelet Count 242 Mean Platelet Volume 12.4 H Immature Granulocytes % 0.300 Neutrophils % 86.7 H Lymphocytes % 7.2 L Monocytes % 5.5 Eosinophils % 0.2 Basophils % 0.1 Nucleated Red Blood Cells % 0.0 Immature Granulocytes # 0.040 H Neutrophils # 11.0 H Lymphocytes # 0.9 Monocytes # 0.7 Eosinophils # 0.0 Basophils # 0.0 Nucleated Red Blood Cells # 0.0 Sodium Level 146 H Potassium Level 4.4 Chloride Level 112 H Carbon Dioxide Level 26 Anion Gap 8 Blood Urea Nitrogen 29 H Creatinine 0.66 Est Glomerular Filtrat Rate mL/min Glucose Level 119 Hemoglobin A1c 5.5 Calcium Level 8.5 Magnesium Level 1.9 Medications Medications Current Medications Atorvastatin Calcium (Lipitor) 40 mg HS PO Last administered on 02/06/19 20:28; Admin Dose 40 MG; Start 02/02/19 at 21:00 Aspirin (Aspirin) 81 mg DAILY PO Last administered on 02/07/19 09:33; Admin Dose 81 MG; Start 02/03/19 at 09:00 Ceftriaxone Sodium 50 ml @ 100 mls/hr Q24H IVPB Last administered on 02/07/19 13:12; Admin Dose 100 MLS/HR; Start 02/04/19 at 11:30 Apixaban (Eliquis) 5 mg BID PO Last administered on 02/07/19 09:36; Admin Dose 5 MG; Start 02/04/19 at 21:00 Diltiazem HCl (Cardizem Iv) 10 mg Q2H PRN IV hr>130; Start 02/04/19 at 12:30 Nicotine (Nicoderm 14 Mg/ 24hr) 1 patch DAILY TRANSDERM Last administered on 02/07/19 09:35; Admin Dose 1 PATCH; Start 02/05/19 at 11:30 Metoprolol Succinate (Toprol Xl) 100 mg BID PO Last administered on 02/07/19 09:33; Admin Dose 100 MG; Start 02/05/19 at 21:00 Hydralazine HCl (Apresoline) 25 mg Q6H PRN PO ELEVATED SYSTOLIC BP Last administered on 02/06/19 01:31; Admin Dose 25 MG; Start 02/06/19 at 01:30 Lisinopril (Zestril) 10 mg DAILY PO Last administered on 02/07/19 09:34; Admin Dose 10 MG; Start 02/06/19 at 12:00 Amlodipine Besylate (Norvasc) 5 mg BID PO Last administered on 02/07/19 09:34; Admin Dose 5 MG; Start 02/06/19 at 12:00 Furosemide (Lasix) 40 mg Q12H IV Last administered on 02/07/19 13:12; Admin Dose 40 MG; Start 02/06/19 at 12:00 Broderick Upton DO Feb 07, 2019 19:11
[2019-02-07] MEDS ORDERED: MAGNESIUM SULFATE 2 GM/50 ML 50 ML IVPB ONE (19:30)
[2019-02-07 19:54] VITALS: BP 150/82; PULSE 77; RESP 18
[2019-02-07] MEDS: ATORVASTATIN 40 MG TAB PO SCH (20:39)
== END 2019-02-07 22:40 | DRG 308 ==
LOC: E/R 11:52 → 6WM 13:55
PROVIDERS: ADMIT Internal Medicine; ATTEND Internal Medicine
DX: I48.2 Chronic atrial fibrillation (principal); I50.23 Acute on chronic systolic (congestive) heart failure; G93.41 Metabolic encephalopathy; J44.1 Chronic obstructive pulmonary disease with (acute) exacerbation; I11.0 Hypertensive heart disease with heart failure; Z88.2 Allergy status to sulfonamides; Z72.0 Tobacco use; I73.9 Peripheral vascular disease, unspecified; E86.0 Dehydration; R74.8 Abnormal levels of other serum enzymes; I42.9 Cardiomyopathy, unspecified; I08.1 Rheumatic disorders of both mitral and tricuspid valves; D72.829 Elevated white blood cell count, unspecified; I27.20 Pulmonary hypertension, unspecified; I42.0 Dilated cardiomyopathy; T42.4X5A Adverse effect of benzodiazepines, initial encounter
CPT/HCPCS: 36415; 70450; 71045; 80048; 80053; 81001; 82550; 82553; 82607; 83036; 83690; 83735; 84484; 85025; 93005; 93306; 96365; 96375; 97110; 97162; 97530; J0696; J1940; J2060; J3475; J7030